=== PATIENT | female | born 1955 | race Caucasian/White ===

== ENCOUNTER 2016-09-15 17:07 | Emergency (ER) | payer OTHER ==
[~2016-09-15] VITALS: Ht 160 cm; Wt 75.3 kg
[~2016-09-15 17:07] MED LIST: FLNIN NAE; HYDR1CAP85 PO; MULTTAB PO; PARO10TA PO
[2016-09-15 17:10] VITALS: TEMP 36.7; Ht 160 cm; Wt 75.3 kg
[2016-09-15 17:25] VITALS: O2SAT 98
[2016-09-15] MEDS ORDERED: FLUT0.15 NAE (17:40)
[2016-09-15 18:19] LABS: BASO % 0.2 %; BASO ABS # 0.01 K/uL (0-0.2); COMPLETE YES; EOS % 0.2 %; HEMATOCRIT 40.2 % (37-47); IG% 0.2 %; LYMPH % 33.2 %; LYMPH ABS # 1.72 K/uL (1.2-3.4); MEAN CELL VOLUME 96.6 fL (80-100); MEAN CORPUSCULAR HEMOGLOBIN 32.7 pg (25-34); MEAN CORPUSCULAR HGB CONC 33.8 g/dl (32-36); MEAN PLATELET VOLUME 10.6 fL (7.4-10.4); MONO % 5.4 %; NEUT % 60.8 %; PLATELET COUNT 214 K/uL (130-400); RED BLOOD COUNT 4.16 M/uL (4.2-5.4); WHITE BLOOD COUNT 5.18 K/uL (4.8-10.8)
[2016-09-15 18:28] LABS: PROTHROMBIN TIME (PATIENT) 10.7 SECONDS (9.0-12.0)
--- NOTE | 2016-09-15 18:47 | DIAGNOSTIC IMAGING REPORT ---
CHEST 2 VIEWS ROUTINE CLINICAL HISTORY: Chest pain. Hemoptysis. COMPARISON STUDY: No previous studies for comparison. FINDINGS: Lung volumes are normal. No consolidation is identified and there is no evidence of pulmonary edema. Cardiac size is within normal limits. Mediastinal contours are normal. No pneumothorax or pleural effusion is identified. Minimal left basilar opacity is suggestive of atelectasis. IMPRESSION: No acute cardiopulmonary findings. Electronically signed by: Skyler Chanel M.D. 09/15/2016 6:45 PM Dictated Date/Time: 09/15/2016 6:44 PM
[2016-09-15 18:49] LABS: BUN/CREATININE RATIO 14.9 (10-20); CALCIUM 9.4 mg/dl (8.5-10.1); CREATININE 0.72 mg/dl (0.60-1.20); POTASSIUM 3.7 mmol/L (3.5-5.1)
[2016-09-15 18:54] LABS: CKMB/CK RATIO 1.9 (0-3.0)
[2016-09-15 19:54] VITALS: BP 124/80; PULSE 82; O2SAT 99
--- NOTE | 2016-09-16 00:13 | EMERGENCY ROOM VISIT NOTE ---
History First contact with patient: 17:17 Chief Complaint: COUGH Stated Complaint: SPITTING AND COUGHING UP BLOOD Nursing Triage Summary: coughing started last night, denies pain in chest, sob,green mucus with blood History of Present Illness The patient is a 60 year old female who presents to the Emergency Room with complaints of coughing up specks of blood since last evening. She reports that the amount is small. The patient denies any recent upper respiratory infection. She does report a history of chronic sinus issues, and has also noticed some blood when blowing her nose. She denies any sore throat, chest pain, shortness of breath, nausea or vomiting. The patient reports that she did mow her lawn this afternoon without any worsening symptoms. She reports a history of rheumatic fever as a child. She denies any other cardiopulmonary history. She does smoke. She does not take any blood thinners, including aspirin. Review of Systems HEENT: Denies dizziness, visual problems, hearing loss, tinnitus. Denies difficulty swallowing or oral lesions. PULMONARY: Denies shortness of breath, sputum production or hemoptysis. CARDIOVASCULAR: Denies chest pain, palpitations, dyspnea on exertion, orthopnea or peripheral edema. GASTROINTESTINAL: Denies diarrhea, constipation, nausea, vomiting, or abdominal pain. GENITOURINARY: Denies dysuria, frequency, urgency or nocturia. NEUROLOGIC: Denies history of epilepsy, CVA, TIA or chronic headaches. MUSCULOSKELETAL: Denies history of joint tenderness/swelling. SKIN: Denies rashes or lesions. PSYCHIATRIC: Denies history of depression or mental illness. ENDOCRINE: Denies history of diabetes or thyroid disorders. Past Medical/Surgical History Medical Problems: (1) Tobacco Use Disorder Surgical Problems: (1) History of ankle surgery (2) History of delivery (3) History of tonsillectomy and adenoidectomy Family History FH: cancer FH: diabetes mellitus FH: gallbladder disease FH: heart disease FH: hypertension Social History Smoking Status: Current Every Day Smoker Alcohol Use: none Drug Use: none Marital Status: in relationship Housing Status: lives with significant other Occupation Status: unemployed Current/Historical Medications Scheduled Multivitamins/Minerals (Mvi With Minerals), 1 TAB PO DAILY Scheduled PRN Fluticasone Propionate (Nasal) (Flonase Allergy Relief), 2 SPRAYS DARLIN DAILY PRN for ALLERGIC REACTION Hydroxyzine Pamoate (Vistaril), 25 MG PO QID PRN Allergies Coded Allergies: No Known Allergies (Unverified , 09/15/16) Physical Exam Vital Signs Date Time Temp Pulse Resp B/P Pulse Ox O2 Delivery O2 Flow Rate FiO2 09/15/16 19:54 82 16 124/80 99 09/15/16 17:29 88 09/15/16 17:25 98 Room Air 09/15/16 17:17 98 Room Air 09/15/16 17:10 36.7 114 18 136/86 96 Room Air Physical Exam CONSTITUTIONAL: Healthy and well nourished. Alert and oriented X 3 with positive affect. She does not appear in any acute distress. PSYCHIATRIC: The patient appears somewhat anxious. HEENT: Normocephalic, atraumatic. Pupils equal, round and reactive. Ears and nares are clear. No rhinorrhea or epistaxis. OROPHARYNX: Minimal posterior pharyngeal erythema without tonsillar hypertrophy or exudates. NECK: Full active range of motion without discomfort. No JVD or carotid bruits. No nuchal rigidity. RESPIRATORY: Clear to auscultation bilaterally with no wheezing, crackles, rhonchi or stridor. CARDIOVASCULAR: Regular rate and rhythm with no murmurs, rubs or gallops. GASTROINTESTINAL: Bowel sounds present in all quadrants. Soft and nontender to palpation. No hepatosplenomegaly. MUSCULOSKELETAL: Full range of motion of all joints without discomfort. INTEGUMENTARY: No rash or other significant dermatologic conditions noted. HEMATOLOGIC: No ecchymosis or petechiae appreciated. NEUROLOGIC: No focal neurologic deficits noted. Medical Decision & Procedures ER Provider Diagnostic Interpretation: My interpretation of an ECG shows a normal sinus rhythm of [address] elevation or other conduction abnormalities. My interpretation of a two-view chest x-ray does not show any consolidations, concerning lesions, pneumothorax or cardiomegaly. Radiologist report is as follows: CHEST 2 VIEWS ROUTINE CLINICAL HISTORY: Chest pain. Hemoptysis. COMPARISON STUDY: No previous studies for comparison. FINDINGS: Lung volumes are normal. No consolidation is identified and there is no evidence of pulmonary edema. Cardiac size is within normal limits. Mediastinal contours are normal. No pneumothorax or pleural effusion is identified. Minimal left basilar opacity is suggestive of atelectasis. IMPRESSION: No acute cardiopulmonary findings. Laboratory Results 09/15/16 18:05 Red Blood Count 4.16, Mean Corpuscular Volume 96.6, Mean Corpuscular Hemoglobin 32.7, Mean Corpuscular Hemoglobin Concent 33.8, Mean Platelet Volume 10.6, Neutrophils (%) (Auto) 60.8, Lymphocytes (%) (Auto) 33.2, Monocytes (%) (Auto) 5.4, Eosinophils (%) (Auto) 0.2, Basophils (%) (Auto) 0.2, Neutrophils # (Auto) 3.15, Lymphocytes # (Auto) 1.72, Monocytes # (Auto) 0.28, Eosinophils # (Auto) 0.01, Basophils # (Auto) 0.01 09/15/16 18:05 Test 09/15/16 18:05 09/15/16 18:14 White Blood Count 5.18 K/uL (4.8-10.8) Red Blood Count 4.16 M/uL (4.2-5.4) Hemoglobin 13.6 g/dL (12.0-16.0) Hematocrit 40.2 % (37-47) Mean Corpuscular Volume 96.6 fL (80-100) Mean Corpuscular Hemoglobin 32.7 pg (25-34) Mean Corpuscular Hemoglobin Concent 33.8 g/dl (32-36) Platelet Count 214 K/uL (130-400) Mean Platelet Volume 10.6 fL (7.4-10.4) Neutrophils (%) (Auto) 60.8 % Lymphocytes (%) (Auto) 33.2 % Monocytes (%) (Auto) 5.4 % Eosinophils (%) (Auto) 0.2 % Basophils (%) (Auto) 0.2 % Neutrophils # (Auto) 3.15 K/uL (1.4-6.5) Lymphocytes # (Auto) 1.72 K/uL (1.2-3.4) Monocytes # (Auto) 0.28 K/uL (0.11-0.59) Eosinophils # (Auto) 0.01 K/uL (0-0.5) Basophils # (Auto) 0.01 K/uL (0-0.2) RDW Standard Deviation 45.1 fL (36.4-46.3) RDW Coefficient of Variation 12.9 % (11.5-14.5) Immature Granulocyte % (Auto) 0.2 % Immature Granulocyte # (Auto) 0.01 K/uL (0.00-0.02) Prothrombin Time 10.7 SECONDS (9.0-12.0) Prothromb Time International Ratio 1.0 (0.9-1.1) Activated Partial Thromboplast Time 26.1 SECONDS (21.0-31.0) Partial Thromboplastin Ratio 1.0 Anion Gap 10.0 mmol/L (3-11) Est Creatinine Clear Calc Drug Dose 80.7 ml/min Estimated GFR () 105.5 Estimated GFR (Non- 91.0 BUN/Creatinine Ratio 14.9 (10-20) Calcium Level 9.4 mg/dl (8.5-10.1) Total Bilirubin 0.4 mg/dl (0.2-1) Direct Bilirubin 0.1 mg/dl (0-0.2) Aspartate Amino Transf (AST/SGOT) 11 U/L (15-37) Alanine Aminotransferase (ALT/SGPT) 18 U/L (12-78) Alkaline Phosphatase 76 U/L (45-117) Total Creatine Kinase 53 U/L (26-192) Creatine Kinase MB 1.0 ng/ml (0.5-3.6) Creatine Kinase MB Ratio 1.9 (0-3.0) Total Protein 7.0 gm/dl (6.4-8.2) Albumin 3.7 gm/dl (3.4-5.0) Lipase 72 U/L (73-393) Bedside D-Dimer 359 ng/mlFEU (0-450) Bedside Troponin I 0.000 ng/ml (0-0.045) The above labs were reviewed and were grossly normal, including a bedside d- dimer and troponin. The patient is not anemic. ED Course Patient history and physical exam were performed. Nurse's notes were reviewed. Vital signs were reviewed and normal. The patient is normotensive and afebrile. O2 saturation is 96% on room air. The patient does not appear in any acute distress. IV access was established, and labs were drawn. An ECG was performed and was normal. Two-view chest x-ray was also normal. Labs were reviewed and were also normal, including a bedside d-dimer and troponin. The case was also discussed with Dr. Urbina, ED attending physician, who agrees with workup and plan of care. Findings were also discussed with the patient. She was encouraged to follow-up with her PCP within the next 2-3 days for reevaluation. She was instructed to return to the emergency department for any worsening bleeding, chest pain, shortness of breath or other concerning symptoms. The patient reports that she has had a long history of sinus problems , but has never seen an ENT physician. I did encourage her to discuss a possible ENT referral when she is reevaluated by her PCP. The patient was happy with plan of care, and voiced understanding of all discharge instructions. Medical Decision The patient presents to the emergency department with complaint of flecks of blood in her sputum when coughing. It is noted that the patient denies any productive ongoing cough, upper respiratory infection, chest pain or shortness of breath. Her workup today is unremarkable. The patient thinks that some of blood might be from her sinuses. At this point, I do feel that the patient is stable for outpatient management, and was instructed to return for any progressively worsening symptoms or hemoptysis. Impression Primary Impression: Hemoptysis Departure Information Referrals Rod Dick M.D. (PCP) Patient Instructions My [facility]
[2016-10-23] MEDS ORDERED: CALC-51 PO (08:53)
[2016-10-23] MEDS ORDERED: CHOL100010 PO (08:53)
[2016-10-23] MEDS ORDERED: MULT-506 PO (08:53)
[2016-10-23] MEDS ORDERED: FEXO1TAB49 PO (08:53)
[2016-11-12] MEDS ORDERED: HYDR-5688 PO (10:02)
== END 2016-09-15 19:55 | disposition home or self-care (01) ==
LOC: C.EDB 17:08 → C.EDA 19:55
DX: R04.2 Hemoptysis (principal); F17.210 Nicotine dependence, cigarettes, uncomplicated; Z80.9 Family history of malignant neoplasm, unspecified; Z83.3 Family history of diabetes mellitus; Z82.49 Family history of ischemic heart disease and other diseases of the circulatory system

== ENCOUNTER → 2016-10-17 | Outpatient (CLI) | payer OTHER ==
[~2016-10-17] MED LIST changes: +CALC-51 PO; +CHOL100010 PO; +FEXO1TAB49 PO; -FLNIN NAE; +FLUT0.15 NAE; +HYDR-5688 PO; +MULT-506 PO; -PARO10TA PO
--- NOTE | 2016-10-17 13:32 | DIAGNOSTIC IMAGING REPORT ---
MRI LEFT KNEE NO CONTRAST CLINICAL HISTORY: Chronic left knee pain COMPARISON STUDY: Conventional radiographic study dated 01/01/2016 FINDINGS: Imaging was performed in the axial, sagittal, and coronal planes. There is a small supra patellar joint effusion. Quadriceps and patellar tendons appear intact. Anterior and posterior cruciate ligaments appear normal. There is a 12 mm subchondral cyst within the posterior aspect of the proximal tibia. The lateral meniscus appears normal. There is a horizontal tear within the posterior horn of the medial meniscus. No tears of the lateral meniscus are visualized. The medial and lateral collateral ligaments appear intact. IMPRESSION: Tear involving the posterior horn of the medial meniscus. Electronically signed by: Arnold Aragon M.D. 10/17/2016 1:30 PM Dictated Date/Time: 10/17/2016 1:27 PM
== END | disposition home or self-care (01) ==
LOC: C.MRIBC 12:19
PROVIDERS: ATTEND Orthopaedic Surgery
DX: S83.242A Other tear of medial meniscus, current injury, left knee, initial encounter (principal); X58.XXXA Exposure to other specified factors, initial encounter

== ENCOUNTER → 2016-11-12 | Day surgery (SDC) | payer OTHER ==
[2016-10-23 08:53] VITALS: Ht 160 cm; Wt 73.2 kg
[2016-10-24 09:42] LABS: BASO % 0.4 %; BASO ABS # 0.02 K/uL (0-0.2); COMPLETE YES; EOS % 5.1 %; HEMATOCRIT 40.8 % (37-47); LYMPH ABS # 1.65 K/uL (1.2-3.4); MEAN CELL VOLUME 97.6 fL (80-100); MEAN CORPUSCULAR HEMOGLOBIN 33.5 pg (25-34); MEAN CORPUSCULAR HGB CONC 34.3 g/dl (32-36); MEAN PLATELET VOLUME 11.1 fL (7.4-10.4); MONO % 4.5 %; PLATELET COUNT 190 K/uL (130-400); RED BLOOD COUNT 4.18 M/uL (4.2-5.4); WHITE BLOOD COUNT 4.71 K/uL (4.8-10.8)
[2016-10-24 10:03] LABS: POTASSIUM 4.1 mmol/L (3.5-5.1)
[~2016-11-12] VITALS: Ht 160 cm; Wt 73.2 kg
[~2016-11-12] MED LIST changes: +ATROPINE SULFATE 0.1 MG/ML 5ML SYR IV PRN; +BUPIVACAINE 0.5 % 5 MG/1 ML PF 10ML VIAL ONE; +CEFAZOLIN 1000MG/55 ML D5W IV SCH; +EpHEDrine SULFATE INJ 50 MG/ML AMP IV PRN; +EpINEphrine INJ 1MG/ML AMP 1 MG/ML AMP ONE; +FENTANYL CITRATE INJ 50 MCG/1 ML 2 ML VIAL IV PRN; +FENTANYL CITRATE INJ 50 MCG/1 ML 2 ML VIAL ONE; -HYDR1CAP85 PO; +KETOROLAC TROMETHAMINE 30 MG/ML VIAL ONE; +LACTATED RINGER'S 1000ML 1,000 ML IV SCH; +LIDOCAINE HCL 2% 2 ML VIAL (20MG/ML) ONE; +MIDAZOLAM HCL 1 MG/ML 2ML VIAL ONE; -MULTTAB PO; +ONDANSETRON INJ 2 MG/ML 2 ML VIAL IV PRN; +ONDANSETRON INJ 2 MG/ML 2 ML VIAL ONE; +OXYCODONE/ACETAMINOPHEN 5-325 TAB PO PRN; +PROPOFOL IV EMULSION 10 MG/ML 20 ML VIAL IV ONE; +ROPIVACAINE 0.5% 5 MG/ML 30 ML VIAL ONE; +SODIUM CHLORIDE 0.9% 1000ML 1,000 ML IV SCH
--- NOTE | 2016-11-12 08:14 | History & Physical Bridge - SC ---
H&P Re-Evaluation Bridge Note: I have examined the patient, reviewed the History & Physical and in the interval since the performance of the History & Physical I have noted the following changes of clinical significance: No changes noted
--- NOTE | 2016-11-12 09:52 | [facility] Post Operative Brief Note ---
Immediate Operative Summary Operative Date Nov 12, 2016. Pre-Operative Diagnosis Left knee medial meniscus tear Post-Operative Diagnosis Same as preop, DJD MEDIAL FEM CONDYLE Procedure(s) Performed Left Knee Arthroscopy, Partial Medial Meniscectomy Surgeon Dr. Palma General Internal Medicine Physician Surgeon(s) Judson Alexander PA-C Estimated Blood Loss 0 mL Findings ABOVE Specimens None Drains NONE Anesthesia LMA Complication(s) None Disposition Recovery Room / PACU
--- NOTE | 2016-11-12 10:03 | Discharge Instructions-SurgCtr ---
Discharge Instructions Date of Service Nov 12, 2016. Visit Reason for Visit: Acute Meniscal Tear Medial Left, Knee Pain Discharge Discharge Diagnosis / Problem: SAME ABOVE Discharge Goals Goal(s): Decrease discomfort, Improve function Activity Recommendations Activity Limitations: as noted below Lifting Limitations: gradually increase as tolerated Exercise/Sports Limitations: until after follow-up appointment Shower/Bathe: may shower/bathe in 3 days Anesthesia . Post Anesthesia Instructions: If you have had General Anesthesia or IV Sedation: * Do not drive today. * Resume driving when surgeon permits. * Do not make important decisions or sign legal documents today. * Call surgeon for: 1. Temperature elevations greater than 101 degrees F. 2. Uncontrollable pain. 3. Excessive bleeding. 4. Persistent nausea and vomiting. 5. Medication intolerance (nausea, vomiting or rash). * For nausea and vomiting use only clear liquids such as: tea, soda, bouillon until nausea subsides, then gradually increase diet as tolerated. * If you have any concerns or questions, call your surgeon's office. If physician is unavailable and it is an emergency, call 911 or go to the nearest emergency room. . Instructions / Follow-Up Instructions / Follow-Up MEDICATIONS: * Resume previous medications unless instructed otherwise by your surgeon. * Always take pain medication on a full stomach or with food to avoid upset stomach. * Do not drink alcohol or drive while taking narcotics. * Ibuprofen or Tylenol may be taken if narcotic not needed. SPECIAL CARE INSTRUCTIONS: __ None _X_ Keep extremity elevated and iced x 48 hours; apply ice 20-30 minutes 8-10 times/day. May remove at night. __ Crutches __ May discard when able __ Brace/Post-op shoe __ 24 hrs/day __ Remove at night _X_ Dressing __ Maintain until seen in office, may shower with plastic over site _X_ Remove dressings in 24-48 hours and then may shower _X_ Cover incisions with band-aids after showering __ Do not remove steri-strips Call physician if chills or temperature rises above 102 degrees or pain unrelieved by prescribed pain medications. Office [phone] Diet Recommendations Home Diet: resume previous diet Procedures Procedures Performed: Left Knee Arthroscopy, Partial Medial Meniscectomy Pending Studies Studies pending at discharge: no Medical Emergencies . Who to Call and When: Medical Emergencies: If at any time you feel your situation is an emergency, please call 911 immediately. . Non-Emergent Contact Non-Emergency issues call your: Primary Care Provider . . "Provider Documentation" section prepared by Judson Alexander. .
--- NOTE | 2016-11-12 10:18 | Anesthesia Progress Nt - [facility] ---
Anesthesia Post Op Note Date & Time Nov 12, 2016 at 10:18 Vital Signs Pain Intensity: 0 Vital Signs Past 12 Hours Date Time Temp Pulse Resp B/P (MAP) Pulse Ox O2 Delivery O2 Flow Rate FiO2 11/12/16 10:01 36.2 80 12 133/72 97 Diffusion Mask 6 11/12/16 08:07 36.7 71 18 120/79 (93) 96 Room Air Notes Mental Status: alert / awake / arousable, participated in evaluation Pt Amnestic to Procedure: Yes Nausea / Vomiting: adequately controlled Pain: adequately controlled Airway Patency, RR, SpO2: stable & adequate BP & HR: stable & adequate Hydration State: stable & adequate Anesthetic Complications: no major complications apparent
[2016-11-12 11:08] VITALS: TEMP 36.9
[2016-11-12 11:22] VITALS: BP 112/72; PULSE 77; O2SAT 96
--- NOTE | 2016-11-14 09:09 | OPERATIVE REPORT ---
DATE OF SURGERY: 11/12/16 PREOPERATIVE DIAGNOSIS: Left knee medial meniscus tear. POSTOPERATIVE DIAGNOSIS: Same. PROCEDURE: Left knee arthroscopy with partial medial mesiscectomy, with grade 2-3 degenerative changes of the medial femoral condyle about the size of a nickel and also the trochlear groove of the distal femur. SURGEON: Dr. Palma. AGRICULTURAL ENGINEERING TECHNICIANS: Judson Alexander PA-C. ANESTHESIOLOGIST: Dr. Astudillo. ANESTHESIA: LMA. DRAINS: None. COMPLICATIONS: None. CONDITION: The patient tolerated the procedure well and returned to the recovery room in apparent satisfactory condition. INDICATIONS FOR SURGERY: Anyi is a 60-year-old female who is having problems with her knee with an injury years back. She continues to have problems and found to have a meniscus tear and elected to go ahead and proceed with surgery. Procedure, expected outcomes, side effects, and risks were all explained in detail. DESCRIPTION OF PROCEDURE: Patient was taken to the OR, at which time she was placed supine on the operating table and put to sleep by the anesthesia department. The left knee was prepped and draped in the usual sterile fashion for surgery. Ligamentous rodriguez was stable. Went ahead and began arthroscopic examination in the anteromedial and anterolateral portals. We immediately found a frayed tear of the posterior horn of the medial meniscus. We came in with upbiting scissors and a full radius resector and trimmed it back to a stable rim. We found one area of the articular surface about the size of a dime to a nickel that was probably grade 2-3 changes. Light debridement was done here. Remaining knee was examined. The lateral compartment was fine. We did find trochlear groove degenerative changes of the articular surface grade 2-3. Light debridement was done here. The knee was then copiously irrigated and cannulas were removed. Portals were closed with 4-0 nylon sutures. 30 Ropivacaine, 10 mg of Toradol, and 1 cc of epinephrine was placed in the knee joint. Placed a sterile dressing of Xeroform, 4 x 4, ABD, Sof-Rol and Aris bandage and returned back to the recovery room in apparently satisfactory condition. SURGICAL FINDINGS: 1. Posterior horn medial meniscus tear. 2. Grade 2-3 changes of the medial femoral condyle about the size of a dime to a nickel. 3. Grade 2-3 changes of the trochlear groove of the distal femur.
== END | disposition home or self-care (01) ==
LOC: X.SURG 07:52
PROVIDERS: ATTEND Orthopaedic Surgery
DX: S83.242A Other tear of medial meniscus, current injury, left knee, initial encounter (principal); X58.XXXA Exposure to other specified factors, initial encounter

== ENCOUNTER 2023-12-24 11:06 | Inpatient (IN) ==
[2023-12-24 12:25] LABS: Basophils # (auto) 0.02 K/uL (0.00-0.20); Basophils % (auto) 0.3 %; Hematocrit (blood only) 39.2 % (37.0-47.0); Hemoglobin 13.6 g/dl (12.0-16.0); Immature Granulocytes # (auto) 0.02 K/uL (0.01-0.20); Immature Granulocytes % (auto) 0.3 %; Lymphocytes # (auto) 1.53 K/uL (1.20-3.40); Lymphocytes % (auto) 20.8 %; Mean Corpuscular Hemoglobin 32.5 pg (25.0-34.0); Mean Corpuscular Hgb Conc 34.7 g/dL (32.0-36.0); Mean Corpuscular Volume 93.8 fL (80.0-100.0); Monocytes # (auto) 0.37 K/uL (0.11-0.59); Neutrophils # (auto) 5.42 K/uL (1.40-6.50); Neutrophils % (auto) 73.6 %; Platelet Count 195 K/uL (130-400); RDW Standard Deviation 44.9 fL (36.4-46.3); Red Blood Count 4.18 M/uL (4.20-5.40); White Blood Count 7.36 K/ul (4.8-10.8)
[2023-12-24] MEDS: KETOROLAC TROMETHAMINE 15 MG/ML VIAL IV ONE (12:39)
[2023-12-24] MEDS: ONDANSETRON INJ 2 MG/ML 2 ML VIAL IV STA (12:39)
[2023-12-24 12:42] LABS: Appearance Urine Clear (Clear); Bacteria Urine Automated None Seen (None Seen); Bilirubin Urine Negative (Negative); Blood Urine Trace (Negative); Cast Urine Automated 0-2 /lpf (0-2); Color Urine Yellow; Glucose Urine UA Negative (Negative); Ketones Urine Negative (Negative); Leukocyte Esterase Urine 1+ (Negative); Nitrite Urine Negative (Negative); Protein Urine Negative (Negative); Specific Gravity Urine 1.013 (1.000-1.030); Urobilinogen Urine Negative (Negative); WBC Urine Automated 0-5 /hpf (0-5)
[2023-12-24 12:45] LABS: Albumin Level 4.4 gm/dl (3.4-5.0); BUN Creatinine Ratio 11.5 (10-20); Bilirubin Direct 0.1 mg/dl (0-0.2); Bilirubin,Total 0.5 mg/dl (0.2-1.0); Est GFR (African American) 113.8 ml/min; Est GFR (Non-African American) 98.2 ml/min; Potassium 3.8 mmol/L (3.5-5.1); Total Protein 7.5 gm/dl (6.0-8.3)
[2023-12-24] MEDS: OPTIRAY 320 100ml IV ONE (12:58)
--- NOTE | 2023-12-24 13:21 | CT Scan Report ---
CT SCAN OF THE ABDOMEN AND PELVIS WITH IV CONTRAST CLINICAL HISTORY: Left lower quadrant abdominal pain. COMPARISON STUDY: Pelvic ultrasound dated 12/03/2006. TECHNIQUE: Following the IV administration of 93 cc of Optiray 320, CT scan of the abdomen and pelvi s is performed from the lung bases to the proximal femora. Images are reviewed in the axial, sagittal , and coronal planes. IV contrast was administered without complication. A dose lowering technique wa s utilized adhering to the principles of ALARA. CT DOSE: 1033.43 mGy.cm FINDINGS: Lung bases: The heart is normal in size and without pericardial effusion. The coronary arteries are d ensely calcified. A tiny hiatal hernia is noted. The lung bases are clear noting bibasilar scarring/a telectasis. Liver: The contrast-enhanced liver is normal in size, contour, and attenuation. There is no intrahepa tic biliary ductal dilatation. The hepatic veins and portal veins are patent. Gallbladder: Unremarkable. Spleen: Normal in size and attenuation. Pancreas: Unremarkable. Adrenal glands: Unremarkable. Kidneys: The contrast enhanced kidneys are normal in size and without hydronephrosis. The kidneys enh ance symmetrically. Scattered 2-3 mm cortical hypodensities likely represent cysts but are too small for definitive characterization. Abdominal vasculature: The abdominal aorta is normal in course and caliber noting advanced atheroscle rotic calcification. Bowel: There is mild colonic fecal retention. No bowel obstruction is seen. The appendix is not visu alized. Peritoneum: There is no intraperitoneal free air or abdominal ascites. There is a fat-containing umbi lical hernia. Lymphadenopathy: None. Pelvic viscera: The bladder is normal as visualized. There is approximately 6 x 7 x 7 cm complex hype rdense lesion posterior to the uterus. There is a small volume of complex free fluid in the cul-de-sa c. The uterus is normal as visualized. Skeletal structures: The skeletal structures are osteopenic. There is mild to moderate lumbosacral sp ondylosis and scoliosis. No lytic or blastic lesions are seen. IMPRESSION: 1. There is an approximately 7 cm round complex/hyperdense adnexal lesion posterior to the uterus. Th is may be hemorrhagic and related to the left ovary. This lesion is pathologically indeterminant, wit h possible considerations including ovarian torsion, a hemorrhagic ovarian mass lesion, or much less likely a degenerating exophytic fibroid. A pelvic ultrasound is recommended for further evaluation. T his should include an endovaginal examination. 2. There is a small volume of mildly complex free fluid in the cul-de-sac which may represent blood p roducts. 3. Additional findings as above. ACT 112: Negative or not required by law. Electronically signed by: Rick Myers M.D. 12/24/2023 1:20 PM
--- NOTE | 2023-12-24 14:26 | Emergency Department Note ---
Impression & Plan Ovarian torsion ED Provider Note NAME: FRANCISCO MAR AGE: 68 SEX: F : 1955 ARRIVES VIA: Walk-In INFORMANT: Patient, ED PROVIDER(S): Shaq Jimenez MD CHIEF COMPLAINT: Left lower quadrant abdominal pain HPI: This is a 68-year-old female sent for left lower quad abdominal pain. Patient notes that this started last night. She is in constant abdominal pain associated with nausea or vomiting. She notes that she has no history of previous kidney stones. She does have slight burning when she urinates. She also reports nausea and vomiting over the course of the night. She notes pain has not improved and has been persistent. she describes pain in the left lower quadrant that goes from her lower groin into her flanks. No recent fevers, chills. ROS: See above HPI for pertinent positives & negatives. A total of 10 systems reviewed and were otherwise negative. PAST MEDICAL HISTORY: See Below PAST SURGICAL HISTORY: See Below FAMILY HISTORY: See Below SOCIAL HISTORY: See Below HOME MEDICATIONS: See Below ALLERGIES: See Below VITALS: See Below PHYSICAL EXAMINATION: General: resting comfortably in no acute distress Head: Normocephalic and atraumatic Eyes: Normal inspection, extraocular muscles intact Ear, nose, throat: Normal external exam Neck: Normal range of motion Respiratory: lungs clear to auscultation bilaterally Cardiovascular: Regular rate/rhythm, no murmur GI: Left lower quadrant tenderness Extremities: nontender, moves all extremities Neuro: The patient awake and alert, appropriately conversive, no focal deficits, symmetric faces Skin: Warm, dry, and intact MEDICAL DECISION MAKING: This is a 68-year-old female sent for left lower quadrant abdominal tenderness. Consider diverticulitis, pyelonephritis, renal colic, ovarian torsion, SBO. will initiate broad workup with blood work, CT abdomen/pelvis, urinalysis. Will give Toradol for pain control at this time. -Labs reviewed showing no leukocytosis or anemia. Electrolytes within normal limits. Normal creatinine, transaminitis is not seen. -Urinalysis reveals slight blood without signs of overt UTI -CT imaging is concerning for 7 cm left adnexal mass concerning for ovarian torsion versus hemorrhagic mass -Pelvic exam performed with nursing handy man, Alfonso, reveals excruciating left adnexal tenderness. Patient is very uncomfortable during this part of the exam -Ultrasound performed again showing mass that is concerning for ovarian torsion versus hemorrhagic mass -Stat call made to [employer]TENS[employer] COURSE COUNSELOR service. They are currently in a and will call me back immediately. -Discussed with EXTENSION COURSE COUNSELOR, who evaluated at bedside for ovarian torsion -Patient will go to the OR emergently as per Dr. Morrell Differential diagnosis: See above ER treatment provided: See below Independent History obtained from: Granddaughter Diagnostics interpreted by me: ECG: None Cardiac Monitoring: An order was placed for continuous cardiac monitoring. The monitor shows a rate of 68 with sinus rhythm. Laboratory studies: As stated above and show below. Imaging studies: See below. Critical Care Note: I have personally spent 45 minutes of critical care time in the direct management of this patient. This includes bedside care, interpretation of diagnostic studies, and testing, discussion with consultants, patient, and family members, and other required patient management activities. This 45 minutes is in excess of all separately billable procedures. Past Med/Surg History Problem List (Updated 12/25/23 @ 09:25 by Shaq Jimenez MD) Ovarian torsion (Acute) Hemoptysis (Acute) Medical History (Updated 12/25/23 @ 09:25 by Shaq Jimenez MD) Encounter for pre-operative examination Ovarian mass, left Tobacco use disorder Allergic rhinitis Surgical History (Updated 12/24/23 @ 17:02 by Marko Philippe MD) History of tonsillectomy and adenoidectomy History of delivery History of ankle surgery Social History Smoking Status: Current every day smoker Tobacco Type: Cigarettes Cigarettes Per Day: 1 pack/day.; Second Hand Exposure: No; Do You Dip or Chew Tobacco: No; Hx Alcohol Use: No Hx Substance Use: No Preferred Language: Swedish Chain Splitter Required: No Beliefs That Will Affect Care: None Current Living Situation: Spouse Other Information That Helps Us Care for You: No Feels Safe at Home: Yes Safety Concerns: Feels Safe At This Time Assistive Devices: Glasses Allergies Allergies Allergy/AdvReac Type Severity Reaction Status Date / Time No Known Allergies Allergy Mild Unverified 12/24/23 13:10 Home Meds Home Medications Medication Instructions Recorded Confirmed albuterol sulfate 90 mcg/actuation 2 puff inhalation Q4H PRN Wheezing 09/30/19 12/24/23 aerosol inhaler cholecalciferol (vitamin D3) 25 25 mcg PO QAM 09/30/19 12/24/23 mcg (1,000 unit) tablet (Vitamin D3) montelukast 10 mg tablet 10 mg PO DAILY Allergy Symptoms 09/30/19 12/24/23 fexofenadine 180 mg tablet 0 mg PO QAM 12/24/23 12/24/23 fluticasone furoate 100 1 inh inhalation DAILY 12/24/23 12/24/23 mcg/actuation blister powder for inhalation (Arnuity Ellipta) multivitamin 1 tab PO DAILY 12/24/23 12/24/23 rosuvastatin 10 mg tablet 10 mg PO QAM 12/24/23 12/24/23 Previous Rx's Medication Instructions Recorded ibuprofen 600 mg tablet 600 mg PO Q6H PRN fever or pain 12/24/23 #30 tabs Results & Data (ED) Vital Signs Vital Signs - 24 hr 12/24/23 11:13 12/24/23 14:53 12/24/23 16:59 Temperature 36.1 C L Temperature Source Temporal Artery Scan Pulse Rate 97 H Pulse Rate [Apical] 68 64 Respiratory Rate 18 18 18 Respiratory Effort / Characteristics Non-Labored Spontaneous Respiratory Depth Normal Respiratory Pattern Regular Blood Pressure 151/101 H Blood Pressure [Right Arm] 132/79 166/69 H Blood Pressure Mean 117 Blood Pressure Mean [Right Arm] 96 101 Pulse Oximetry 95 98 98 Oxygen Delivery Method Room Air Room Air Room Air Sepsis Recent Fever Within 48 Hours No Sepsis New/Unexplained Change in Mental Status N/A Sepsis Action Taken by Nursing No Action Required Laboratory Data 12/24/23 11:53 12/24/23 11:53 Lab Results 12/24/23 Range/Units 11:53 WBC 7.36 (4.8-10.8) K/ul RBC 4.18 L (4.20-5.40) M/uL Hgb 13.6 (12.0-16.0) g/dl Hct 39.2 (37.0-47.0) % MCV 93.8 (80.0-100.0) fL MCH 32.5 (25.0-34.0) pg MCHC 34.7 (32.0-36.0) g/dL RDW Std Deviation 44.9 (36.4-46.3) fL RDW Coeff of Cornelio 13.0 (11.5-14.5) % Plt Count 195 (130-400) K/uL MPV 11.0 (9.4-12.4) fL Immature Gran % (Auto) 0.3 % Neut % (Auto) 73.6 % Lymph % (Auto) 20.8 % [place] % (Auto) 5.0 % Eos % (Auto) 0.0 % Baso % (Auto) 0.3 % Neut # (Auto) 5.42 (1.40-6.50) K/uL Lymph # (Auto) 1.53 (1.20-3.40) K/uL [place] # (Auto) 0.37 (0.11-0.59) K/uL Eos # (Auto) 0.00 (0.00-0.50) K/uL Baso # (Auto) 0.02 (0.00-0.20) K/uL Immature Gran # (Auto) 0.02 (0.01-0.20) K/uL Sodium 137 (136-145) mmol/L Potassium 3.8 (3.5-5.1) mmol/L Chloride 105 (98-107) mmol/L Carbon Dioxide 26 (21-32) mmol/L Anion Gap 6 (3-11) BUN 6 (6-23) mg/dl Creatinine 0.52 L (0.6-1.2) mg/dl Est Cr Clr Drug Dosing 98.0 ml/min Est GFR ( Amer) 113.8 ml/min Est GFR (Non-Af Amer) 98.2 ml/min BUN/Creatinine Ratio 11.5 (10-20) Glucose 103 H (70-99(Fasting)) mg/dl Calcium 10.0 (8.6-10.3) mg/dl Total Bilirubin 0.5 (0.2-1.0) mg/dl Direct Bilirubin 0.1 (0-0.2) mg/dl AST 14 (13-39) U/L ALT 12 (7-52) U/L Alkaline Phosphatase 71 (34-104) U/L Total Protein 7.5 (6.0-8.3) gm/dl Albumin 4.4 (3.4-5.0) gm/dl Administered Medications Fexofenadine HCl (Fexofenadine Hcl 180 Mg Tab) 180 mg PO QAM [facility] Stop: 01/24/24 08:59 Last Admin: 12/25/23 07:57 Dose: 180 mg Documented By: KETTY Fluticasone Furoate (Fluticasone Furoate 100mcg 14 Puffs/Inhaler) 1 puffs INH DAILY BERTRAM Stop: 01/24/24 08:59 Last Admin: 12/25/23 07:59 Dose: 1 puffs Documented By: KETTY Lactated Ringer's (Lr) 1,000 mls @ 125 mls/hr IV .Q8H BERTRAM Stop: 12/25/23 20:32 Last Admin: 12/25/23 07:59 Dose: Not Given Documented By: Admin: 12/25/23 07:59 Dose: Not Given Documented By: KETTY Ibuprofen (Ibuprofen 600 Mg Tab) 600 mg PO Q6H PRN PRN Reason: Pain & Pre PT Stop: 01/23/24 20:39 Last Admin: 12/25/23 07:56 Dose: 600 mg Documented By: KETTY Montelukast Sodium (Montelukast Sodium 10 Mg Tablet) 10 mg PO DAILY [facility] Stop: 01/24/24 08:59 Last Admin: 12/25/23 07:57 Dose: 10 mg Documented By: KETTY Multivitamins (Multivitamin Tab) 1 tab PO DAILY BERTRAM Stop: 01/24/24 08:59 Last Admin: 12/25/23 07:57 Dose: 1 tab Documented By: KETTY Rosuvastatin Calcium (Rosuvastatin Calcium 10 Mg Tab) 10 mg PO QAM [facility] Stop: 01/24/24 08:59 Last Admin: 12/25/23 07:58 Dose: 10 mg Documented By: KETTY Discontinued Medications Bupivacaine HCl (Bupivacaine 0.5 % 5 Mg/1 Ml Mpf 30ml Vial) Confirm Administered Dose 30 ml .ROUTE .STK-MED ONE Stop: 12/24/23 16:53 Last Admin: 12/24/23 19:49 Dose: 30 ml Documented By: SAZ Hydromorphone HCl (Hydromorphone Inj 0.5 Mg/0.5 Ml Syr) 0.5 mg IV NOW STA Stop: 12/24/23 15:00 Last Admin: 12/24/23 15:02 Dose: 0.5 mg Documented By: SOL Ioversol (Optiray 320 100ml) 93 ml IV ONCE ONE Stop: 12/24/23 12:58 Last Admin: 12/24/23 12:58 Dose: 93 ml Documented By: TIO Ketorolac Tromethamine (Ketorolac Tromethamine 15 Mg/Ml Vial) 15 mg IV NOW ONE Stop: 12/24/23 12:36 Last Admin: 12/24/23 12:39 Dose: 15 mg Documented By: SOL Ondansetron HCl (Ondansetron Inj 2 Mg/Ml 2 Ml Vial) 4 mg IV NOW STA Stop: 12/24/23 12:36 Last Admin: 12/24/23 12:39 Dose: 4 mg Documented By: SOL Imaging Data Radiologist's Impression: Abdomen/Pelvis CT 12/24/23 11:29 CT SCAN OF THE ABDOMEN AND PELVIS WITH IV CONTRAST CLINICAL HISTORY: Left lower quadrant abdominal pain. COMPARISON STUDY: Pelvic ultrasound dated 12/03/2006. TECHNIQUE: Following the IV administration of 93 cc of Optiray 320, CT scan of the abdomen and pelvis is performed from the lung bases to the proximal femora. Images are reviewed in the axial, sagittal, and coronal planes. IV contrast was administered without complication. A dose lowering technique was utilized adhering to the principles of ALARA. CT DOSE: 1033.43 mGy.cm FINDINGS: Lung bases: The heart is normal in size and without pericardial effusion. The coronary arteries are densely calcified. A tiny hiatal hernia is noted. The lung bases are clear noting bibasilar scarring/atelectasis. Liver: The contrast-enhanced liver is normal in size, contour, and attenuation. There is no intrahepatic biliary ductal dilatation. The hepatic veins and portal veins are patent. Gallbladder: Unremarkable. Spleen: Normal in size and attenuation. Pancreas: Unremarkable. Adrenal glands: Unremarkable. Kidneys: The contrast enhanced kidneys are normal in size and without hydronephrosis. The kidneys enhance symmetrically. Scattered 2-3 mm cortical hypodensities likely represent cysts but are too small for definitive characterization. Abdominal vasculature: The abdominal aorta is normal in course and caliber noting advanced atherosclerotic calcification. Bowel: There is mild colonic fecal retention. No bowel obstruction is seen. The appendix is not visualized. Peritoneum: There is no intraperitoneal free air or abdominal ascites. There is a fat-containing umbilical hernia. Lymphadenopathy: None. Pelvic viscera: The bladder is normal as visualized. There is approximately 6 x 7 x 7 cm complex hyperdense lesion posterior to the uterus. There is a small volume of complex free fluid in the cul-de-sac. The uterus is normal as visualized. Skeletal structures: The skeletal structures are osteopenic. There is mild to moderate lumbosacral spondylosis and scoliosis. No lytic or blastic lesions are seen. IMPRESSION: 1. There is an approximately 7 cm round complex/hyperdense adnexal lesion posterior to the uterus. This may be hemorrhagic and related to the left ovary. This lesion is pathologically indeterminant, with possible considerations including ovarian torsion, a hemorrhagic ovarian mass lesion, or much less likely a degenerating exophytic fibroid. A pelvic ultrasound is recommended for further evaluation. This should include an endovaginal examination. 2. There is a small volume of mildly complex free fluid in the cul-de-sac which may represent blood products. 3. Additional findings as above. ACT 112: Negative or not required by law. Electronically signed by: Rick Myers M.D. 12/24/2023 1:20 PM Pelvis Ultrasound 12/24/23 13:37 US pelvic complete CLINICAL HISTORY: torsion, lesion to L ovary TECHNIQUE: Real-time sonographic images of the pelvic contents were obtained with transabdominal and transvaginal technique. Comparison: Comparison is made to CT abdomen pelvis 12/24/2023 FINDINGS: The uterus measures 5.3 x 2.7 x 2.8 cm. The endometrial cavity echo stripe measures 0.2 cm in thickness. The uterus is normal in appearance. Right ovary is not visualized. There is a nonvascular 6.8 x 5.6 x 6.2 cm focus in the left adnexa. There was no fluid in the cul-de-sac. IMPRESSION: The right ovary is not seen and no normal left ovary is seen. There is a large heterogeneous area in the left adnexa without internal flow, concerning for ovarian torsion although it may represent hemorrhagic ovarian mass lesion. ACT 112: Negative or not required by law. Electronically signed by: Esteban Baxter M.D. 12/24/2023 2:50 PM Discharge Plan Visit Data Chief Complaint: Flank Pain Stated Complaint: LEFT SIDE PAIN, VOMITING ED Provider: Shaq Jimenez Discharge Problem: Ovarian torsion Patient Disposition: Admitted As Inpatient Discharge Instructions Interventions: ED Discharge Assessment Last Done: 12/24/23 17:00
--- NOTE | 2023-12-24 14:53 | Ultrasound Report ---
US pelvic complete CLINICAL HISTORY: torsion, lesion to L ovary TECHNIQUE: Real-time sonographic images of the pelvic contents were obtained with transabdominal and transvaginal technique. Comparison: Comparison is made to CT abdomen pelvis 12/24/2023 FINDINGS: The uterus measures 5.3 x 2.7 x 2.8 cm. The endometrial cavity echo stripe measures 0.2 cm in thickne ss. The uterus is normal in appearance. Right ovary is not visualized. There is a nonvascular 6.8 x 5.6 x 6.2 cm focus in the left adnexa. There was no fluid in the cul-de-sac. IMPRESSION: The right ovary is not seen and no normal left ovary is seen. There is a large heterogeneous area in the left adnexa without internal flow, concerning for ovarian torsion although it may represent hemor rhagic ovarian mass lesion. ACT 112: Negative or not required by law. Electronically signed by: Esteban Baxter M.D. 12/24/2023 2:50 PM
[2023-12-24] MEDS: HYDROmorphone INJ 0.5 MG/0.5 ML SYR IV STA (15:02)
--- NOTE | 2023-12-24 16:57 | History & Physical Report ---
Date of Service December 24, 2023 Assessment & Plan (1) Ovarian mass, left: Plan: Operative laparoscopy, possible exploratory laparotomy, possible removal of ovary History of Present Illness Chief Complaint: abdominal pain Primary Care Provider: Aguilar Hinkle DO 68 F P2002 post-menopausal with onset of left LLQ pain starting last PM and lasting to admission to ER this AM. She vomited four times last night and was unable to keep anything down with pain that was not relieved so she came to the ER. 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 Allergies Allergy/AdvReac Type Severity Reaction Status Date / Time No Known Allergies Allergy Mild Unverified 12/24/23 13:10 Home Medications Medication Instructions Recorded Confirmed Type albuterol sulfate 90 mcg/actuation 2 puff inhalation Q4H PRN Wheezing 09/30/19 12/24/23 History aerosol inhaler cholecalciferol (vitamin D3) 25 25 mcg PO QAM 09/30/19 12/24/23 History mcg (1,000 unit) tablet (Vitamin D3) montelukast 10 mg tablet 10 mg PO DAILY Allergy Symptoms 09/30/19 12/24/23 History fexofenadine 180 mg tablet 0 mg PO QAM 12/24/23 12/24/23 History fluticasone furoate 100 1 inh inhalation DAILY 12/24/23 12/24/23 History mcg/actuation blister powder for inhalation (Arnuity Ellipta) multivitamin 1 tab PO DAILY 12/24/23 12/24/23 History rosuvastatin 10 mg tablet 10 mg PO QAM 12/24/23 12/24/23 History Patient History Medical History Tobacco use disorder Allergic rhinitis Surgical History History of ankle surgery Social History Smoking Status: Current some day smoker Tobacco Type: Cigarettes Preferred Language: Czech Feels Safe at Home: Yes 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 no mass. no rebound or guarding. pain with deep palpation in abdomen. Musculoskeletal: Extremities: extremities normal to inspection Skin: no rashes, warm and dry Neurologic: patellar DTR's 2+ bilat, sensation intact Psychiatric: A+Ox3, euthymic affect Results & Data Vital Signs (Past 12 Hours) Vital Signs Temp Pulse Pulse Resp BP BP Pulse Ox 12/24/23 14:53 68 18 132/79 98 12/24/23 11:13 36.1 C L 97 H 18 151/101 H 95 O2 Del Method 12/24/23 14:53 Room Air 12/24/23 11:13 Room Air Laboratory Results 12/24/23 12/24/23 11:53 Unknown WBC 7.36 RBC 4.18 L Hgb 13.6 Hct 39.2 MCV 93.8 MCH 32.5 MCHC 34.7 RDW Std Deviation 44.9 RDW Coeff of Cornelio 13.0 Plt Count 195 MPV 11.0 Immature Gran % (Auto) 0.3 Neut % (Auto) 73.6 Lymph % (Auto) 20.8 [place] % (Auto) 5.0 Eos % (Auto) 0.0 Baso % (Auto) 0.3 Neut # (Auto) 5.42 Lymph # (Auto) 1.53 [place] # (Auto) 0.37 Eos # (Auto) 0.00 Baso # (Auto) 0.02 Immature Gran # (Auto) 0.02 Sodium 137 Potassium 3.8 Chloride 105 Carbon Dioxide 26 Anion Gap 6 BUN 6 Creatinine 0.52 L Est Cr Clr Drug Dosing 98.0 Est GFR ( Amer) 113.8 Est GFR (Non-Af Amer) 98.2 BUN/Creatinine Ratio 11.5 Glucose 103 H Calcium 10.0 Total Bilirubin 0.5 Direct Bilirubin 0.1 AST 14 ALT 12 Alkaline Phosphatase 71 Total Protein 7.5 Albumin 4.4 Urine Color Yellow Urine Appearance Clear Urine pH 7.0 Ur Specific [place] 1.013 Urine Protein Negative Urine Glucose (UA) Negative Urine Ketones Negative Urine Blood Trace H Urine Nitrite Negative Urine Bilirubin Negative Urine Urobilinogen Negative Ur Leukocyte Esterase 1+ H Urine WBC (Auto) 0-5 Urine RBC (Auto) 6-10 H U Hyaline Cast (Auto) 0-2 U Epithel Cells (Auto) 3-5 H Urine Bacteria (Auto) None Seen Diagnostic Findings CT scan reveal Left ovarian enlargement with 7x7x6 cm mass with possible torsion.
[2023-12-24] MEDS ORDERED: ATROPINE SULFATE 0.1 MG/ML 10ML SYR IV PRN (17:00)
[2023-12-24] MEDS ORDERED: HYDROmorphone INJ 1 MG/ML SYRINGE IV PRN (17:00)
[2023-12-24] MEDS ORDERED: ePHEDrine sulfate 50 MG/ML AMP IV PRN (17:00)
[2023-12-24] MEDS ORDERED: ONDANSETRON INJ 2 MG/ML 2 ML VIAL IV PRN (17:00)
[2023-12-24] MEDS ORDERED: fentaNYL citrate PF 100 MCG/2 ML VIAL IV PRN (17:00)
[2023-12-24] MEDS ORDERED: PROMETHAZINE 6.25 MG/50.25 ML BAG IV PRN (17:04)
--- NOTE | 2023-12-24 17:04 | Anesthesiology Consultation ---
Date of Service December 24, 2023 Assessment & Plan (1) Encounter for pre-operative examination: Chart Review Chart Review: Acceptable Risk for Surgery and Patient NOT seen in Pre Admission Testing Consults Requested none History Surgery Operation Date: 12/24/23 07:00 Proposed Procedures p Operative Laparoscopy, Possible Open Laparotomy for Ovarian Torsion - Tomas Morrell MD Height/Weight Height: 5 ft 2 in Weight: 74.8 kg Allergies Allergy/AdvReac Type Severity Reaction Status Date / Time No Known Allergies Allergy Mild Unverified 12/24/23 13:10 Medications Home Medications Medication Instructions Recorded Confirmed Last Taken albuterol sulfate 90 mcg/actuation 2 puff inhalation Q4H PRN Wheezing 09/30/19 12/24/23 Unknown aerosol inhaler cholecalciferol (vitamin D3) 25 25 mcg PO QAM 09/30/19 12/24/23 05/04/22 mcg (1,000 unit) tablet (Vitamin D3) montelukast 10 mg tablet 10 mg PO DAILY Allergy Symptoms 09/30/19 12/24/23 05/04/22 fexofenadine 180 mg tablet 0 mg PO QAM 12/24/23 12/24/23 Unknown fluticasone furoate 100 1 inh inhalation DAILY 12/24/23 12/24/23 Unknown mcg/actuation blister powder for inhalation (Arnuity Ellipta) multivitamin 1 tab PO DAILY 12/24/23 12/24/23 Unknown rosuvastatin 10 mg tablet 10 mg PO QAM 12/24/23 12/24/23 Unknown Past Medical History Medical History (Updated 12/24/23 @ 17:03 by Marko Philippe MD) Encounter for pre-operative examination Ovarian mass, left Tobacco use disorder Allergic rhinitis Past Surgical History Surgical History (Updated 12/24/23 @ 17:02 by Marko Philippe MD) History of tonsillectomy and adenoidectomy History of delivery History of ankle surgery Social History Smoking Status: Current some day smoker Physical Exam Vital Signs Last Vital Signs Temp 36.1 C L 12/24/23 11:13 Pulse 64 12/24/23 16:59 Resp 18 12/24/23 16:59 BP 166/69 H 12/24/23 16:59 Pulse Ox 98 12/24/23 16:59 O2 Del Method Room Air 12/24/23 16:59 Testing Laboratory Results 12/24/23 11:53 12/24/23 11:53 Urine Color Yellow 12/24/23 Unknown Urine Appearance Clear (Clear) 12/24/23 Unknown Urine pH 7.0 (4.5-7.5) 12/24/23 Unknown Ur Specific [place] 1.013 (1.000-1.030) 12/24/23 Unknown Urine Protein Negative (Negative) 12/24/23 Unknown Urine Glucose (UA) Negative (Negative) 12/24/23 Unknown Urine Ketones Negative (Negative) 12/24/23 Unknown Urine Nitrite Negative (Negative) 12/24/23 Unknown Ur Leukocyte Esterase 1+ (Negative) H 12/24/23 Unknown Urine WBC (Auto) 0-5 /hpf (0-5) 12/24/23 Unknown Urine RBC (Auto) 6-10 /hpf (0-2) H 12/24/23 Unknown U Hyaline Cast (Auto) 0-2 /lpf (0-2) 12/24/23 Unknown U Epithel Cells (Auto) 3-5 /hpf (0-2) H 12/24/23 Unknown Urine Bacteria (Auto) None Seen (None Seen) 12/24/23 Unknown Electrocardiogram 05/05/22 DICTATED BY: Rod Winston MD Test Reason : Blood Pressure : / mmHG Vent. Rate : 065 BPM Atrial Rate : 065 BPM P-R Int : 184 ms QRS Dur : 096 ms QT Int : 396 ms P-R-T Axes : 074 054 062 degrees QTc Int : 411 ms Normal sinus rhythm Anterior infarct , age undetermined Abnormal ECG When compared with ECG of 11-JUN-2021 11:16, No significant change was found Confirmed by Rod Winston ([id number]) on 05/06/2022 6:10:[address] abdomen 12/24/23: IMPRESSION: 1. There is an approximately 7 cm round complex/hyperdense adnexal lesion posterior to the uterus. This may be hemorrhagic and related to the left ovary. This lesion is pathologically indeterminant, with possible considerations including ovarian torsion, a hemorrhagic ovarian mass lesion, or much less likely a degenerating exophytic fibroid. A pelvic ultrasound is recommended for further evaluation. This should include an endovaginal examination. 2. There is a small volume of mildly complex free fluid in the cul-de-sac which may represent blood products.
--- OUTSIDE RECORDS SUMMARY | 2023-12-24 17:05 | External Medical Summary | Summary of Care ---
Author Name Unknown Organization [facility] Address [address] [facility] [place] [address] Phone [phone] Care Team Providers Care Turn Down Worker Name Role Phone Unavailable Primary Care Provider Unavailabl e Reason for Visit * Reason Comments eRx-Medication Refill Encounter Details Date Type Department Care Team (Late st Contact Info) Description 09/04/2023 Refill Family Practice [facility] [address] [place] [address] Char Luque CRNP [address] [place] [address] Dyslipidemia Allergies No known active allergiesdocumented as of this encounter (statuses as of 09/04/2023) Medications Medication Sig Dispensed Refills Start Date End Date Status Vitamin D, Cholecalciferol, 1000 UNITS CAPS Take by mouth. 0 Active Multiple Vitamins-Minerals (MULTIVITAMIN ADULT) TABS Take by mouth. 0 Active fexofenadine (MINDI) 180 MG TabletIndications:Acu te recurrent sinusitis, unspecified location,Non-seasonal allergic rhinitis due to pollen Take 1 Tab by mouth daily as needed for Allergies. 30 Tab 11 09/18/2016 Active fluticasone (FLONASE) 50 MCG/ACT nasal sprayIndications:Acut e recurrent sinusitis, unspecified location,Non-seasonal allergic rhinitis due to pollen Administer 2 Sprays into each nostril daily. 1 Inhaler 5 09/18/2016 Active hydrOXYzine HCl 25 MG tabletIndications:Urt icaria Take 1 Tab by mouth 4 times a day as needed for Itching. 40 Tab 2 09/01/2019 Active Varenicline Tartrate 0.5 MG X 11 & 1 MG X 42 OralIndications:Tobac co use disorder Take as directed on box. 53 Tablet 0 11/26/2021 Active Additional Information Patient not taking.Reported on 12/31/2022 Nicotine 21 MG/24HR Transdermal Patch 24 Hour (Nicoderm CQ)Indications:Tobacc o use disorder Place 1 Patch over 24 hours topically on the skin in the morning. On upper body/upper arm, change once a day for 6 weeks.. 42 Patch 0 12/31/2022 Active Additional Information Patient not taking.Reported on 08/20/2023 Diclofenac Sodium 1 % External Gel (Voltaren)Indications :Primary osteoarthritis of left knee APPLY 4 GRAMS FOUR TIMES DAILY TO KNEE NEEDED FOR PAIN 100 g 2 01/13/2023 Active Azithromycin 250 MG Oral Tablet (Zithromax Z-Jeancarlos)Indications:Acu te non-recurrent frontal sinusitis Take two tablets by mouth on first day, then 1 tablet daily until gone 6 Tablet 0 01/24/2023 Active Additional Information Patient not taking.Reported on 08/20/2023 Albuterol Sulfate HFA 108 (90 Base) MCG/ACT Inhalation Aerosol SolutionIndications:C OPD, severity to be determined (HCC) Use 2 puffs every 4 hours as needed for wheezing or shortness of breath 18 g 2 03/04/2023 Active Montelukast Sodium 10 MG Oral Tablet (Singulair)Indication s:Seasonal allergic rhinitis due to pollen TAKE 1 TABLET BY MOUTH EVERY DAY 90 Tablet 1 07/19/2023 Active Rosuvastatin Calcium 10 MG Oral Tablet (Crestor)Indications: Dyslipidemia Take 1 Tablet by mouth in the morning. 90 Tablet 3 08/20/2023 Active Varenicline Tartrate 1 MG Oral TabletIndications:Tob acco use disorder As directed on box, 0.5 mg once daily on day 1-3, 0.5 mg twice daily on day 4-7, and 1 mg twice daily starting day 8 for 11 weeks. 90 Tablet 0 08/20/2023 Active Arnuity Ellipta 100 MCG/ACT Inhalation Aerosol Powder Breath Activated (fluticasone Furoate)Indications:C OPD, severity to be determined (HCC) Inhale 1 Puff by mouth daily. 30 Each 3 08/26/2023 Active documented as of this encounter (statuses as of 09/04/2023) Active Problems Problem Noted Date Diagnosed Date COPD, severity to be determined 11/26/2021 Dyslipidemia 11/26/2021 Primary osteoarthritis of left knee 11/26/2021 Dysfunction of left eustachian tube 08/28/2018 Seasonal allergic rhinitis due to pollen 019 TMJ (temporomandibular joint syndrome) 9 Benign neoplasm of colon 09/17/2007 Overview: adenomatous and hyperplastic; repeat colonoscopy in 3 yrs Tobacco use disorder documented as of this encounter (statuses as of 09/04/2023) Resolved Problems Problem Noted Date Diagnosed Date Resolved Date Moderate episode of recurren t major depressive disorder 02/20/2018 05/25/2019 Vitamin D deficiency 06/01/2009 018 ADVANCE DIRECTIVE INFORMATION 03/01/2005 05/30/2016 Overview: No, Advance Directive brochure given to patient. Menopause 03/01/2005 01/29/2018 Urticaria 05/19/2003 01/29/2018 Urticaria 05/19/2003 02/20/2018 Overview: aggravated by cold and stress HELICOBACTER PYLORI (H. PYLORI) INFECTION 08/01/2000 12/19/2000 Abdominal pain, epigastric 08/01/2000 1 CHR BLOOD LOSS ANEMIA 07/04/20002016 Adjustment disorder with depressed mood 01/29/2018 documented as of this encounter (statuses as of 09/04/2023) Immunizations Name Administration Dates Next Due H1N1 2009 Influenza, IM 06/05/2009 Pneumococcal Conjugate Vacci ne, 20-valent ([id number]) 06/20/2022 Pneumococcal Polysaccharide PPV23 (Pneumovax) 05/28/2021,03/27/2009 Seasonal Influenza Virus Vac cine, Unspecified Formulation 04/17/2021,04/17/2020,05/24/2019,01/29,02/18/2013,03/02/2009,03/02/2006 Seasonal Influenza, PF, 6 M & above, IM , (FluLaval or Fluzone) 04/17/2020,05/24/2019,01/29/2018 Seasonal Influenza, Quadriva lent Hd (Fluzone Hd) 02/14/2023 Seasonal Influenza, Quadrivalent, ID 03/14/2022 Seasonal Influenza, Quadriva lent, No Preserve, IM 04/17/2021 Seasonal Influenza, Split, I IV3, With Preserve, Inj 02/18/2013,03/02/2009,03/02/2006 TDAP (age 10 and older)(Boostrix) 11/23/2020 TDAP (age 11 and older)(Adacel) 09/24/2010 Zoster Vaccine Recombinant (Shingrix) 08/02/2019 ,05/24/2019 documented as of this encounter Social History Tobacco Use Types Packs/Day Years Used Date Smoking Tobacco: Every Day Cigarettes 0.5 40 Smokeless Tobacco: Never Alcohol Use Standard Drinks/Week Comments No 0 (1 standard drink = 0.6 oz pur e alcohol) PHQ-2 Answer Date Recorded PHQ-2 Score 0 12/13/2019 Hunger Vital Sign Answer Date Recorded Within the past 12 months, y ou worried that your food would run out before you got the money to buy more. Never true 11/24/19 21 Within the past 12 months, t he food you bought just didn't last and you didn't have money to get more. Never true 11/23/2020 Sex and Gender Information Value Date Recorded Sex Assigned at Female 08/28/2018 10:33 AM EDT Gender Identity Female 08/28/2018 10:33 AM EDT Sexual Orientation Straight 08/28/2018 10 :33 AM EDT Job Start Date Occupation Industry Not on file Not on file Not on file documented as of this encounter Miscellaneous Notes * Telephone Encounter - Marbella Harrington, [facility] - 09/04/2023 4:27 PM EDTRefused Prescriptions: Disp Refills Rosuvastatin Calcium 10 MG Oral Tablet (Cr*90 Tab*1 Sig: TAKE 1TABLET BY MOUTH EVERY DAYRefused By: MARBELLA HARRINGTONReason for Refusal: Too soonReason for Refusal Comment: refills sent 08/20/23 90 x 3rf --------- documented in this encounter Plan of Treatment Upcoming Encounters Date Type Department Care Team (Late st Contact Info) Description 10/27/2023 7:00 AM EDT Imaging Radiology [address] [place] [id number] 02/19/2024 7:20 AM EDT Office Visit Family Practice [facility] [address] [place] [phone] Char Luque CRNP [address] [place] [address] Scheduled Procedures Name Priority Associated Diagnoses Date/Ti me COLONOSCOPY FLEXIBLE PROXIMA L DIAGNOSTIC Recall History of colonic polyps Health Maintenance Due Date Last Done Comments DISCUSS TOBACCO CESSATION (REFER TO SMARTSET #3291) 1955 Alpha-1 Antitrypsin 12/15/1973 Depression Screening 12/12/2020 12/13/2019 COVID-19 Vaccine (2022- season) 2023 O2 ASSESSMENT COMPLETED IN PAST YEAR FOR COPD 01/01/2024 12/31/2022 Mammogram 06/02/2024 06/02/2023, 05/19, 05/29/2022, Additional history exists COLONOSCOPY-EVERY 5 YRS AGES 18-100 12/19/2024 12/20/2019, 12/20/2019, 09/17/2007, Additional history exists Diabetes Screening 08/19/2026 08/20/2023, 0 10/22/2022, 05/28/2021, Additional history exists DXA Scan 11/28/2027 11/27/2020, 11/16, 04/02/2010, Additional history exists Lipid Panel 08/19/2028 08/20/2023, 06/0 10/2022, 05/28/2021, Additional history exists DTaP,Tdap,and Td Vaccines (3 - Td or Tdap) 11/23/2030 11/23/2020, 09/24/2010, 10/15/2000 Zoster Vaccines Completed 08/02/2019, 05/24/2019 COLONOSCOPY-EVERY 3 YRS AGES 18-100 Discontinued 12/20/2019, 12/20/2019, 09/17/2007, Additional history exists Pap Smear Discontinued 12/24/2019, 11/2019, 04/08/2016, Additional history exists Pneumococcal Vaccine: 65+ Years Completed 06/20/2022, 05/28/2021, 03/27/2009 Lung Cancer Screening Completed 10/22/2022 , 10/19/2021, 09/22/2020 Influenza Vaccine (FLU shot) Completed 02/14/2023, 03/14/2022, 02/24/2022, Additional history exists GARDASIL-HPV IMMUNIZATION SERIES Aged Out No longer eligible based on patient's age to complete this topic Hepatitis B Aged Out No longer eligi ble based on patient's age to complete this topic MENINGOCOCCAL (MENACTRA/MENVEO) Aged Out No longer eligible based on patient's age to complete this topic documented as of this encounter Medical Devices Not on filedocumented as of this encounter Visit Diagnoses Diagnosis Dyslipidemia Other and unspecified hyperlipidemia documented in this encounter
--- OUTSIDE RECORDS SUMMARY | 2023-12-24 17:05 | External Medical Summary | Summary of Care ---
Author Name Unknown Organization [facility] Address [address] [facility] [place] [address] Phone [phone] Care Team Providers Care Visual Merchandiser Name Role Phone Unavailable Primary Care Provider Unavailabl e Reason for Visit * Reason Comments eRx-Medication Refill Encounter Details Date Type Department Care Team (Late st Contact Info) Description 12/14/2023 Refill Family Practice [facility] [address] [place] [phone] Ricky Luque CRNP [address] [place] [address] COPD, severity to be determined (HCC) Allergies No known active allergiesdocumented as of this encounter (statuses as of 12/15/2023) Medications Medication Sig Dispensed Refills Start Date End Date Status Vitamin D, Cholecalciferol, 1000 UNITS CAPS Take by mouth. Activ e Multiple Vitamins-Minerals (MULTIVITAMIN ADULT) TABS Take by mouth. Active fexofenadine (MINDI) 180 MG TabletIndications:A cute recurrent sinusitis, unspecified location,Non-season al allergic rhinitis due to pollen Take 1 Tab by mouth daily as needed for Allergies. 30 Tab 11 7 Active fluticasone (FLONASE) 50 MCG/ACT nasal sprayIndications:Ac [place] recurrent sinusitis, unspecified location,Non-season al allergic rhinitis due to pollen Administer 2 Sprays into each nostril daily. 1 Inhaler 5 7 Active hydrOXYzine HCl 25 MG tabletIndications:U rticaria Take 1 Tab by mouth 4 times a day as needed for Itching. 40 Tab 2 0 Active Varenicline Tartrate 0.5 MG X 11 & 1 MG X 42 OralIndications:Tob acco use disorder Take as directed on box. 53 Tablet 2 Active Additional Information Patient not taking.Reported on 12/31/2022 Nicotine 21 MG/24HR Transdermal Patch 24 Hour (Nicoderm CQ)Indications:Toba director of accounts receivable use disorder Place 1 Patch over 24 hours topically on the skin in the morning. On upper body/upper arm, change once a day for 6 weeks.. 42 Patch 3 Active Additional Information Patient not taking.Reported on 08/20/2023 Diclofenac Sodium 1 % External Gel (Voltaren)Indicatio ns:Primary osteoarthritis of left knee APPLY 4 GRAMS FOUR TIMES DAILY TO KNEE NEEDED FOR PAIN 100 g 2 3 Active Azithromycin 250 MG Oral Tablet (Zithromax Z-Jeancarlos)Indications:A cute non-recurrent frontal sinusitis Take two tablets by mouth on first day, then 1 tablet daily until gone 6 Tablet 3 Active Additional Information Patient not taking.Reported on 08/20/2023 Albuterol Sulfate HFA 108 (90 Base) MCG/ACT Inhalation Aerosol SolutionIndications :COPD, severity to be determined (HCC) Use 2 puffs every 4 hours as needed for wheezing or shortness of breath 18 g 2 3 Active Montelukast Sodium 10 MG Oral Tablet (Singulair)Indicati ons:Seasonal allergic rhinitis due to pollen TAKE 1 TABLET BY MOUTH EVERY DAY 90 Tablet 1 4 Active Rosuvastatin Calcium 10 MG Oral Tablet (Crestor)Indication s:Dyslipidemia Take 1 Tablet by mouth in the morning. 90 Tablet 3 4 Active Varenicline Tartrate 1 MG Oral TabletIndications:T obacco use disorder As directed on box, 0.5 mg once daily on day 1-3, 0.5 mg twice daily on day 4-7, and 1 mg twice daily starting day 8 for 11 weeks. 90 Tablet 4 Active Arnuity Ellipta 100 MCG/ACT Inhalation Aerosol Powder Breath Activated (fluticasone Furoate)Indications :COPD, severity to be determined (HCC) INHALE 1 PUFF BY MOUTH EVERY DAY 30 Each 3 4 Active Arnuity Ellipta 100 MCG/ACT Inhalation Aerosol Powder Breath Activated (fluticasone Furoate)Indications :COPD, severity to be determined (HCC) Inhale 1 Puff by mouth daily. 30 Each 3 4 12/15/19 24 Discontinued documented as of this encounter (statuses as of 12/15/2023) Active Problems Problem Noted Date Diagnosed Date [...] as of this encounter (statuses as of 12/15/2023) Resolved Problems Problem Noted Date Diagnosed Date [...] as of this encounter (statuses as of 12/15/2023) Immunizations Name Administration Dates Next Due H1N1 2009 Influenza, IM 06/05/2009 Pneumococcal Conjugate Vacci ne, 20-valent ([id number]) 06/20/2022 Pneumococcal Polysaccharide PPV23 (Pneumovax) 05/28/2021,03/27/2009 Seasonal Influenza Virus Vac cine, Unspecified Formulation 04/17/2021,04/17/2020,05/24/2019,01/29,02/18/2013,03/02/2009,03/02/2006 Seasonal Influenza, PF, 6 M & above, IM , (FluLaval or Fluzone) 04/17/2020,05/24/2019,01/29/2018 Seasonal Influenza, Quadriva lent Hd (Fluzone Hd) 02/14/2023 Seasonal Influenza, Quadrivalent, ID 03/14/2022 Seasonal Influenza, Quadriva lent, No Preserve, IM 04/17/2021 Seasonal Influenza, Split, I IV3, With Preserve, Inj 02/18/2013,03/02/2009,03/02/2006 TDAP (age 10 and older)(Boostrix) 11/23/2020 TDAP, Age 7 and older, IM (Adacel) 09/24/2010 Zoster Vaccine Recombinant (Shingrix) 08/02/2019 ,05/24/2019 [...] money to get more. Never true 11/23/2020 Utilities Answer Date Recorded Do you have trouble paying y our heating, water, or electric bill? (Adult - for ages 18 years and over) Not on file 11/04/2023 Is your family able to pay t he heat, water, or electric bill? (Household - for ages 0-17 years) Not on file 11/04/2023 Does your family have access to good internet? (Household - for ages 0-17 years) Not on file 11/04/2023 Social Connections Answer Date Recorded How often do you feel lonely or isolated from those around you? (Adult - for ages 18 years and over) Not on file 11/04/2023 Sex and Gender Information Value Date Recorded Sex Assigned at Female 08/28/2018 10:33 AM EDT Gender Identity Female 08/28/2018 10:33 AM EDT Sexual Orientation Straight 08/28/2018 10 :33 AM EDT Job Start Date Occupation Industry Not on file Not on file Not on file documented as of this encounter Miscellaneous Notes * Telephone Encounter - Ricky Luque CRNP - 12/15/2023 1:05 PM EDTSigned Prescriptions: Disp Refills Arnuity Ellipta 100 MCG/ACT Inhalation Aer*30 Each3 Sig: INHALE 1 PUFF BY MOUTH EVERY DAY Authorizing Provider: RICKY LUQUE * Telephone Encounter - Maribel Love [facility] - 12/15/2023 12:53 PM EDT Pending Prescriptions: Disp Refills Arnuity Ellipta 100 MCG/ACT Inhalation Aer*30 Each3 Sig: INHALE 1 PUFF BY MOUTH EVERY DAY * Telephone Encounter - Maribel Love RP - 12/15/2023 12:53 PM EDT Patient has no PCP under whom to authorize refills. Please approve if appropriate. Thank you, Maribel Love, PharmD Clinical Pharmacist [facility] 12/15/23 12:53 PM [phone] documented in this encounter Plan of Treatment Upcoming Encounters Date Type Department Care Team (Late st Contact Info) Description 02/19/2024 7:20 AM EDT Office Visit Family Practice [facility] [address] [place] [address] Ricky Luque CRNP [address] [place] [address] Scheduled Procedures Name Priority Associated Diagnoses Date/Ti me COLONOSCOPY FLEXIBLE PROXIMA L DIAGNOSTIC Recall History of colonic polyps Health Maintenance Due Date Last Done Comments DISCUSS TOBACCO CESSATION (REFER TO SMARTSET #5365) 1955 Alpha-1 Antitrypsin 12/15/1973 Cologuard 12/15/2000 Fecal Occult Blood Test 12/15/2000 01/25/1998 Sigmoidoscopy 12/15/2000 Depression Screening 12/12/2020 12/13/2019 COVID-19 Vaccine ( season) 2023 *COPD SEVERITY VERIFIED BY PFT 11/30/2023 *CXR OR CT FOR COPD EVER 11/30/2023 O2 ASSESSMENT COMPLETED IN PAST YEAR FOR COPD 01/01/2024 12/31/2022 Influenza Vaccine (FLU shot) (#1) 2024 02/14/2023, 03/14/2022, 02/24/2022, Additional history exists Mammogram 06/02/2024 06/02/2023, 05/19, 05/29/2022, Additional history exists Colonoscopy 12/19/2024 12/20/2019, 0807/2019, 09/17/2007, Additional history exists Colorectal Cancer Screening 12/19/2024 Diabetes Screening 08/19/2026 08/20/2023, 0 10/22/2022, 05/28/2021, Additional history exists DXA Scan 11/28/2027 11/27/2020, 11/16, 04/02/2010, Additional history exists Lipid Panel 08/19/2028 08/20/2023, 06/0 10/2022, 05/28/2021, Additional history exists DTaP,Tdap,and Td Vaccines (3 - Td or Tdap) 11/23/2030 11/23/2020, 09/24/2010, 10/15/2000 Zoster Vaccines Completed 08/02/2019, 05/24/2019 RETIRED - COLONOSCOPY-EVERY 5 YRS AGES 18-100 Discontinued 12/20/2019, 12/20/2019, 09/17/2007, Additional history exists Pap Smear Discontinued 12/24/2019, 11/2019, 04/08/2016, Additional history exists Pneumococcal Vaccine: 65+ Years Completed 06/20/2022, 05/28/2021, 03/27/2009 Lung Cancer Screening Completed 10/27/2023 , 10/22/2022, 10/19/2021, Additional history exists HPV (Gardasil) Vaccine Aged Out No lo nger eligible based on patient's age to complete this topic Hepatitis B Vaccine Aged Out No longe r eligible based on patient's age to complete this topic MENINGOCOCCAL (MENACTRA/MENVEO) Aged Out No longer eligible based on patient's age to complete this topic documented as of this encounter Medical Devices Not on filedocumented as of this encounter Visit Diagnoses Diagnosis COPD, severity to be determined (HCC) Chronic airway obstruction, not elsewhere classified documented in this encounter
--- OUTSIDE RECORDS SUMMARY | 2023-12-24 17:06 | External Medical Summary | Summary of Care ---
Author Name Unknown Organization [facility] Address [address] [facility] [place] [address] Phone [phone] Care Team Providers Care Interventional Sale Consultant Name Role Phone Unavailable Primary Care Provider Unavailabl e Reason for Visit * Reason Comments eRx-Medication Refill Encounter Details Date Type Department Care Team (Late st Contact Info) Description 07/19/2023 Refill Family Practice [facility] [address] [facility] [place] [address] Aguilar Hinkle, DO [address] [place] [address] Seasonal allergic rhinitis due to pollen Allergies No known active allergiesdocumented as of this encounter (statuses as of 07/19/2023) Medications Medication Sig Dispensed Refills Start Date End Date Status Vitamin D, Cholecalciferol, 1000 UNITS CAPS Take by mouth. 0 Activ e Multiple Vitamins-Minerals (MULTIVITAMIN ADULT) TABS Take by mouth. 0 Active fexofenadine (MINDI) 180 MG TabletIndications:A cute recurrent sinusitis, unspecified location,Non-season al allergic rhinitis due to pollen Take 1 Tab by mouth daily as needed for Allergies. 30 Tab 11 7 Active fluticasone (FLONASE) 50 MCG/ACT nasal sprayIndications:[place] recurrent sinusitis, unspecified location,Non-season al allergic rhinitis [...] as directed on box. 53 Tablet 0 2 Active Additional Information Patient not taking.Reported on 12/31/2022 Rosuvastatin Calcium 10 MG Oral Tablet (Crestor)Indication s:Dyslipidemia TAKE 1 TABLET BY MOUTH EVERY DAY 90 Tablet 2 3 Active Nicotine 21 MG/24HR Transdermal Patch 24 Hour (Nicoderm CQ)Indications:Toba manager strategy & account use disorder Place 1 Patch over 24 hours topically on the skin in the morning. On upper body/upper arm, change once a day for 6 weeks.. 42 Patch 0 3 Active Diclofenac Sodium 1 % External Gel (Voltaren)Indicatio ns:Primary osteoarthritis of left knee APPLY 4 GRAMS FOUR TIMES DAILY TO KNEE NEEDED FOR PAIN 100 g 2 3 Active Azithromycin 250 MG Oral Tablet (Zithromax Z-Jeancarlos)Indications:A cute non-recurrent frontal sinusitis Take two tablets by mouth on first day, then 1 tablet daily until gone 6 Tablet 0 3 Active Albuterol Sulfate HFA 108 (90 Base) MCG/ACT Inhalation Aerosol SolutionIndications :COPD, severity to be determined (HCC) Use 2 puffs every 4 hours as needed for wheezing or shortness of breath 18 g 2 3 Active Advair Diskus 250-50 MCG/ACT Inhalation Aerosol Powder Breath Activated (Fluticasone-Salmet mike)Indications:CO PD, severity to be determined (HCC) INHALE 1 PUFF BY MOUTH TWO TIMES DAILY 180 Each 1 3 Active Montelukast Sodium 10 MG Oral Tablet (Singulair)Indicati ons:Seasonal allergic rhinitis due to pollen TAKE 1 TABLET BY MOUTH EVERY DAY 90 Tablet 1 4 Active Montelukast Sodium 10 MG Oral Tablet (Singulair)Indicati ons:Seasonal allergic rhinitis due to pollen TAKE 1 TABLET BY MOUTH EVERY DAY 90 Tablet 3 3 07/19/19 24 Discontinued documented as of this encounter (statuses as of 07/19/2023) Active Problems Problem Noted Date Diagnosed Date [...] as of this encounter (statuses as of 07/19/2023) Resolved Problems Problem Noted Date Diagnosed Date [...] as of this encounter (statuses as of 07/19/2023) Immunizations Name Administration Dates Next Due H1N1 2009 Influenza, IM 06/05/2009 Pneumococcal Conjugate Vacci ne, 20-valent ([id number]) 06/20/2022 Pneumococcal Polysaccharide PPV23 (Pneumovax) 05/28/2021,03/27/2009 Seasonal [...] encounter Miscellaneous Notes * Telephone Encounter - Denise Vásquez, [facility] - 07/19/2023 9:32 PM ESTSigned Prescriptions: Disp Refills Montelukast Sodium 10 MG Oral Tablet (Sing*90 Tab*1 Sig: TAKE 1TABLET BY MOUTH EVERY DAYAuthorizing Provider: Moose HINKLE User: DENISE VÁSQUEZ--- documented in this encounter Plan of Treatment Scheduled Procedures Name Priority Associated Diagnoses Date/Ti me COLONOSCOPY FLEXIBLE PROXIMA L DIAGNOSTIC Recall History of colonic polyps Health Maintenance Due Date Last Done Comments DISCUSS TOBACCO CESSATION (REFER TO SMARTSET #0244) 1955 Alpha-1 Antitrypsin 12/15/1973 Depression Screening 12/12/2020 12/13/2019 COVID-19 Vaccine ( season) 2023 O2 ASSESSMENT COMPLETED IN PAST YEAR FOR COPD 01/01/2024 12/31/2022 Mammogram 06/02/2024 06/02/2023, 05/19, 05/29/2022, Additional history exists COLONOSCOPY-EVERY 5 YRS AGES 18-100 12/19/2024 12/20/2019, 12/20/2019, 09/17/2007, Additional history exists Diabetes Screening 10/22/2025 10/22/2022, 0 05/28/2021, 05/26/2020, Additional history exists Lipid Panel 10/23/2027 10/22/2022, 05/19, 05/26/2020, Additional history exists DXA Scan 11/28/2027 11/27/2020, 11/16, 04/02/2010, Additional history exists DTaP,Tdap,and Td Vaccines (3 - Td or Tdap) 11/23/2030 11/23/2020, 09/24/2010, 10/15/2000 Zoster Vaccines Completed 08/02/2019, 05/24/2019 COLONOSCOPY-EVERY 3 YRS AGES 18-100 Discontinued 12/20/2019, 12/20/2019, 09/17/2007, Additional history exists Pap Smear Discontinued 12/24/2019, 11/2019, 04/08/2016, Additional history exists Pneumococcal Vaccine: 65+ Years Completed 06/20/2022, 05/28/2021, 03/27/2009 LUNG CANCER SCREENING - USE SMARTSET 51264 Completed 10/22/2022, 10/19/2021, 09/22/2020 Influenza Vaccine (FLU shot) Completed [...] as of this encounter Visit Diagnoses Diagnosis Seasonal allergic rhinitis due to pollen documented in this encounter
--- OUTSIDE RECORDS SUMMARY | 2023-12-24 17:06 | External Medical Summary | Summary of Care ---
Author Name Unknown Organization [facility] Address [address] [facility] [place] [address] Phone [phone] Care Team Providers Care Line Up Worker Name Role Phone Unavailable Primary Care Provider Unavailabl e Reason for Visit * Reason Comments eRx-Medication Refill Encounter Details Date Type Department Care Team (Late st Contact Info) Description 08/06/2023 Refill Family Practice [facility] [address] [place] [address] Aguilar Hinkle, DO [address] [place] [address] Dyslipidemia Allergies No known active allergiesdocumented as of this encounter (statuses as of 08/07/2023) Medications Medication Sig Dispensed Refills Start Date [...] Active fluticasone (FLONASE) 50 MCG/ACT nasal sprayIndications:Ac [place] recurrent sinusitis, unspecified location,Non-season al allergic rhinitis [...] MG/24HR Transdermal Patch 24 Hour (Nicoderm CQ)Indications:Toba accounting advisory services manager use disorder Place 1 Patch over 24 [...] TAKE 1 TABLET BY MOUTH EVERY DAY 30 Tablet 0 4 Active Rosuvastatin Calcium 10 MG Oral Tablet (Crestor)Indication s:Dyslipidemia TAKE 1 TABLET BY MOUTH EVERY DAY 90 Tablet 2 3 08/07/19 24 Discontinued documented as of this encounter (statuses as of 08/07/2023) Active Problems Problem Noted Date Diagnosed Date [...] as of this encounter (statuses as of 08/07/2023) Resolved Problems Problem Noted Date Diagnosed Date [...] as of this encounter (statuses as of 08/07/2023) Immunizations Name Administration Dates Next Due H1N1 2009 Influenza, IM 06/05/2009 Pneumococcal Conjugate Vacci ne, 20-valent ([id number]) 06/20/2022 Pneumococcal Polysaccharide PPV23 (Pneumovax) 05/28/2021,03/27/2009 Seasonal Influenza Virus Vac cine, Unspecified Formulation 04/17/2021,04/17/2020,05/24/2019,01/17,02/18/2013,03/02/2009,03/02/20 06 Seasonal Influenza, PF, 6 M & above, IM , (FluLaval or Fluzone) 04/17/2020,05/24/2019,01/29/2018 Seasonal Influenza, Quadriva lent Hd (Fluzone Hd) 02/14/2023 Seasonal Influenza, Quadrivalent, ID 03/14/2022 Seasonal Influenza, Quadriva lent, No Preserve, IM 04/17/2021 Seasonal Influenza, Split, I IV3, With Preserve, Inj 02/18/2013,03/02/2009,03/02/2006 TD - Tetanus/Diptheria (ADULT) 10/15/2000 0 10/15/2010 TDAP (age 10 and older)(Boostrix) 11/23/2020 TDAP [...] encounter Miscellaneous Notes * Telephone Encounter - Iona Watts OSA - 08/07/2023 9:18 AM EDT My g sent * Telephone Encounter - Mariaelena Valderrama CRNP - 08/07/2023 6:49 AM EDT Signed Prescriptions: Disp Refills Rosuvastatin Calcium 10 MG Oral Tablet (Cr*30 Tab*0 Sig: TAKE 1 TABLET BY MOUTH EVERY DAY Authorizing Provider: MARIAELENA VALDERRAMA * Telephone Encounter - April Mayes [facility] - 08/06/2023 10:39 PM EDTPending Prescriptions: Disp Refills Rosuvastatin Calcium 10 MG Oral Tablet (Cr*90 Tab*1 Sig: TAKE 1 TABLET BY MOUTH EVERY DAY * Telephone Encounter - April Mayes [facility] - 08/06/2023 10:39 PM EDT Patient has no PCP under whom to authorize refills. Please approve if appropriate. Pending Prescriptions: Disp Refills Rosuvastatin Calcium 10 MG Oral Tablet (Cr*90 Tab*1 Sig: TAKE 1 TABLET BY MOUTH EVERY DAY 12/31/2022 (in office), Visit date not found (telemedicine) Visit date not found If no future appointments scheduled, and last appointment is greater than a year ago, please schedule patient for a follow-up appointment Last date the medication was ordered: 11/12/22 Pharmacy: [id number] [id number] [facility] [place] Is this request for a controlled substance?No Urine Drug Screen:No results found for this or any previous visit. Patient Phone Numbers Labs: Lab Results Component Value Date/Time CREAT 0.7 10/22/2022 04:24 PM CREAT 0.8 05/26/2020 09:31 AM POTASSIUM 4.1 10/22/2022 04:24 PM POTASSIUM 4.6 05/26/2020 09:31 AM TSH 0.73 04/17/2010 02:08 PM LDLCALC 72 10/22/2022 04:24 PM LDLCALC 111 05/26/2020 09:31 AM LDLDIRECT NOT APPLICABLE 05/26/2020 09:31 AM ALT 18 10/22/2022 04:24 PM ALT 14 05/26/2020 09:31 AM documented in this encounter Plan of Treatment Scheduled Procedures Name Priority Associated Diagnoses Date/Ti me COLONOSCOPY FLEXIBLE PROXIMA L DIAGNOSTIC Recall History of colonic polyps Health Maintenance Due Date Last Done Comments DISCUSS TOBACCO CESSATION (REFER TO SMARTSET #6344) 1955 Alpha-1 Antitrypsin 12/15/1973 Depression Screening 12/12/2020 [...] 03/27/2009 LUNG CANCER SCREENING - USE SMARTSET 34504 Completed 10/22/2022, 10/19/2021, 09/22/2020 Influenza Vaccine (FLU [...]
--- OUTSIDE RECORDS SUMMARY | 2023-12-24 17:06 | External Medical Summary ---
Author Name Unknown Address Unknown Organization K01:[facility] [facility] [place] [address] [place] [address] Laboratory Report Ordering Provider Test Date Status SHERI LI 08/20/2023 08:10:40 Final Observation Date Value Abnormality Reference (Units ) Status Hyphen 8ODE SPECIMEN-LAV 08/20/2023 08:10:40 Freezing of extracted DNA, whole blood and/or serum. Final Performing Location LABORATORY C - [address] [place] [address]
--- OUTSIDE RECORDS SUMMARY | 2023-12-24 17:06 | External Medical Summary | Summary of Care ---
Author Name Unknown Organization [facility] Address [address] [facility] [place] [address] Phone [phone] Care Team Providers Care Supervisor Ordnance Truck Installation Name Role Phone Unavailable Primary Care Provider Unavailabl e Reason for Visit * Reason Onset Date Comments Pre Cert/Prior Auth 08/25/2023 Encounter Details Date Type Department Care Team (Late st Contact Info) Description 08/25/2023 Telephone Family Practice [facility] [address] [place] [address] Char Luque CRNP [address] [place] [address] Pre Cert/Prior Auth Allergies No known active allergiesdocumented as of this encounter (statuses as of 08/27/2023) Medications Medication Sig Dispensed Refills Start Date [...] Active fluticasone (FLONASE) 50 MCG/ACT nasal sprayIndications:Ac [place] recurrent sinusitis, unspecified location,Non-season al allergic rhinitis [...] MG/24HR Transdermal Patch 24 Hour (Nicoderm CQ)Indications: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 On upper body/upper arm, change once a day for 6 weeks.. 42 Patch 0 3 Active Additional Information Patient not taking.Reported [...] until gone 6 Tablet 0 3 Active Additional Information Patient not taking.Reported [...] 8 for 11 weeks. 90 Tablet 0 4 Active Arnuity Ellipta 100 MCG/ACT Inhalation Aerosol Powder Breath Activated (fluticasone Furoate)Indications :COPD, severity to be determined (HCC) Inhale 1 Puff by mouth daily. 30 Each 3 4 Active Fluticasone Furoate-Vilanterol 200-25 MCG/ACT Inhalation Aerosol Powder Breath Activated (BREO ellipta)Indications :COPD, severity to be determined (HCC) Inhale 1 Puff by mouth in the morning. 60 Blister Dosing Unit 2 4 08/26/19 24 Discontinued documented as of this encounter (statuses as of 08/27/2023) Active Problems Problem Noted Date Diagnosed Date [...] as of this encounter (statuses as of 08/27/2023) Resolved Problems Problem Noted Date Diagnosed Date [...] as of this encounter (statuses as of 08/27/2023) Immunizations Name Administration Dates Next Due H1N1 2009 Influenza, IM 06/05/2009 Pneumococcal Conjugate Vacci ne, 20-valent ([id number]) 06/20/2022 Pneumococcal Polysaccharide PPV23 (Pneumovax) 05/28/2021,03/27/2009 Seasonal [...] encounter Miscellaneous Notes * Telephone Encounter - Char Luque CRNP - 08/26/2023 8:23 PM EDT Alternative sent * Telephone Encounter - John Pro RN - 08/25/2023 8:42 AM EDT Received fax from [facility]'s pharmacy stating that Fluticasone Furoate-Vilanterol 200-25 MCG/ACT Inhalation Aerosol Powder requires prior-authorization. Shepherd: [id number] Alternatives listed that do not require prior-authorization are: Advair HFA Arnuity Ellipta Fax placed in Char's mailbox for review. documented in this encounter Plan of Treatment Upcoming Encounters Date Type Department Care Team (Late st Contact Info) Description 10/27/2023 7:00 AM EDT Imaging Radiology [facility] 1st [facility] [address] [facility] [place] [address] 02/19/2024 7:20 AM EDT Office Visit Family Practice [facility] [address] [facility] [place] [address] Char Luque CRNP [address] [facility] [place] [address] Scheduled Procedures Name Priority Associated Diagnoses Date/Ti [...] 03/27/2009 LUNG CANCER SCREENING - USE SMARTSET 04543 Completed 10/22/2022, 10/19/2021, 09/22/2020 Influenza Vaccine (FLU [...] Diagnoses Diagnosis COPD, severity to be determined (HCC)- Primary Chronic airway obstruction, not elsewhere classified documented in this encounter
--- OUTSIDE RECORDS SUMMARY | 2023-12-24 17:06 | External Medical Summary ---
Author Name Unknown Address Unknown Organization K01:LABORATORY [facility] [place] - [address] [place] [address] Laboratory Report Ordering Provider Test Date Status SHERI LI 08/20/2023 08:10:40 Final Observation Date Value Abnormality Reference (Units ) Status MYCODE SPECIMEN-SST 08/20/2023 08:10:40 Freezing of extracted DNA, whole blood and/or serum. Final Performing Location LABORATORY C - [address] [place] [address]
--- OUTSIDE RECORDS SUMMARY | 2023-12-24 17:06 | External Medical Summary | Summary of Care ---
Author Name Unknown Organization [facility] Address [address] [facility] [place] [address] Phone [phone] Care Team Providers Care Oyster Grower Name Role Phone Unavailable Primary Care Provider Unavailabl e Reason for Visit * Reason Comments eRx-Medication Refill Encounter Details Date Type Department Care Team (Late st Contact Info) Description 08/06/2023 Refill Family Practice [facility] [address] [place] [address] Aguilar Hinkle, DO [address] [place] [address] Dyslipidemia Allergies No known [...] Active fluticasone (FLONASE) 50 MCG/ACT nasal sprayIndications:Ac [place] recurrent sinusitis, unspecified location,Non-season al allergic rhinitis [...] MG/24HR Transdermal Patch 24 Hour (Nicoderm CQ)Indications:Toba account services manager use disorder Place 1 Patch [...] IM 06/05/2009 Pneumococcal Conjugate Vacci ne, 20-valent ([id number]) 06/20/2022 Pneumococcal Polysaccharide PPV23 (Pneumovax) 05/28/2021,03/27/2009 Seasonal [...] encounter Miscellaneous Notes * Telephone Encounter - Mariaelena Valderrama CRNP - 08/07/2023 6:49 AM EDT Signed Prescriptions: Disp Refills Rosuvastatin Calcium 10 MG Oral Tablet (Cr*30 Tab*0 Sig: TAKE 1 TABLET BY MOUTH EVERY DAY Authorizing Provider: MARIAELENA VALDERRAMA * Telephone Encounter - April Mayes [facility] - 08/06/2023 10:39 PM EDTPending Prescriptions: Disp Refills Rosuvastatin Calcium 10 MG Oral Tablet (Cr*90 Tab*1 Sig: TAKE 1 TABLET BY MOUTH EVERY DAY * Telephone Encounter - April Mayes [facility] - 08/06/2023 10:39 PM EDT Patient has [...] the medication was ordered: 11/12/22 Pharmacy: [facility] [id number] [place] Is this request for a controlled substance?No [...] Comments DISCUSS TOBACCO CESSATION (REFER TO SMARTSET #3848) 1955 Alpha-1 Antitrypsin 12/15/1973 Depression Screening 12/12/2020 [...] 03/27/2009 LUNG CANCER SCREENING - USE SMARTSET 70258 Completed 10/22/2022, 10/19/2021, 09/22/2020 Influenza Vaccine (FLU [...]
--- OUTSIDE RECORDS SUMMARY | 2023-12-24 17:06 | External Medical Summary ---
Author Name Unknown Address Unknown Organization K01:[place] [facility] [place] [address] [place] [address] Laboratory Report Ordering Provider Test Date Status SHERI LI 08/20/2023 08:10:40 Final Observation Date Value Abnormality Reference (Units ) Status MYCODE SPECIMEN-SST 08/20/2023 08:10:40 Freezing of extracted DNA, whole blood and/or serum. Final Performing Location LABORATORY C - [address] [place] [address]
--- OUTSIDE RECORDS SUMMARY | 2023-12-24 17:06 | External Medical Summary ---
Author Name Unknown Address Unknown Organization K01[place] [facility] [place] [address] [facility] [place] [address] Laboratory Report Ordering Provider Test Date Status OPHELIA GARCÍA 08/20/2023 08:10:40 Final Observation Date Value Abnormality Reference (Units ) Status Triglyceride 08/20/2023 08:10:40 79 <=174 ( mg/dL) Final Triglyceride Reference Range s (mg/dL):
<150 Acceptable
150-174 Borderline high
175-499 High
>=500 Very high Cholesterol 08/20/2023 08:10:40 147 <200 (mg /dL) Final Total Cholesterol Reference Ranges (mg/dL):
<200 Desirable
200-239 Borderline high
>=240 High HDL 08/20/2023 08:10:40 58 >49 (mg/dL ) Final HDL Cholesterol Reference Ra nges (mg/dL):
>=60 High (Desirable)
<50 Low (Undesirable) For Females
<40 Low (Undesirable) For Males NON-HDL CHOLESTEROL 08/20/2023 08:10:40 89 <=159 (mg/dL) Final Non-HDL Cholesterol Referenc e Range (mg/dL):
<100 Target level for high risk ASCVD patient
<130 Optimal for general population
130-159 Near optimal for general population
160-189 Borderline High
190-219 High
>=220 Very High LDL, (calculated) 08/20/2023 08:10:40 73 <= 129 (mg/dL) Final LDL Cholesterol Reference Ra nges (mg/dL):
<70 Target level for high risk ASCVD patient
<100 Optimal for general population
100-129 Near optimal for general population
130-159 Borderline high
160-189 High
>=190 Very high Performing Location [place] [facility] [place] [address] [facility] [phone]
--- OUTSIDE RECORDS SUMMARY | 2023-12-24 17:06 | External Medical Summary ---
Author Name Unknown Address Unknown Organization K0G:LABORATORY [facility] [place] [facility] - [address] [place] [address] Laboratory Report Ordering Provider Test Date Status OPHELIA GARCÍA 08/20/2023 08:10:40 Final Observation Date Value Abnormality Reference (Units ) Status BUN 08/20/2023 08:10:40 15 6-20 (mg/dL) Final Creatinine 08/20/2023 08:10:40 0.7 0.5-1.0 (mg/dL) Final Glomerular filtration rate/1.73 sq M.predicted [Volume Rate/Area] in Serum, Plasma or Blood by Creatinine-based formula (CKD-EPI) 08/20/2023 08:10:40 90 >=60 (mL/min) Final eGFR is calculated based on the CKD-EPI 2020 equation Sodium 08/20/2023 08:10:40 142 135-146 (m mol/L) Final Potassium 08/20/2023 08:10:40 4.1 3.5-5.1 (m mol/L) Final Cl 08/20/2023 08:10:40 106 98-107 (mm ol/L) Final CO2 08/20/2023 08:10:40 25 22-32 (mmo l/L) Final Anion gap 08/20/2023 08:10:40 11 7-15 (mmol /L) Final Glucose 08/20/2023 08:10:40 103 70-120 (mg /dL) Final Albumin 08/20/2023 08:10:40 4.3 3.8-5.0 (g /dL) Final AST (Aspartate aminotransferase) 08/20/2023 08:10:40 18 10-35 (U/L) Fin al Alk Phos 08/20/2023 08:10:40 74 35-130 (U/ L) Final Bilirubin, Total 08/20/2023 08:10:40 0.4 <=1 .2 (mg/dL) Final Calcium 08/20/2023 08:10:40 10.3 Above high normal 8. 4-10.2 (mg/dL) Final Protein 08/20/2023 08:10:40 6.8 6.0-8.3 (g /dL) Final ALT (Alanine aminotransferase) 08/20/2023 08:10:40 15 10-35 (U/L) Dino schwartz Performing Location LABORATORY [employer] [facility] - [address] [facility] [address]
--- OUTSIDE RECORDS SUMMARY | 2023-12-24 17:06 | External Medical Summary | Summary of Care ---
Author Name Unknown Organization [facility] Address [address] [facility] [place] [address] Phone [phone] Care Team Providers Care Video Games Storywriter Name Role Phone Unavailable Primary Care Provider Unavailabl e Reason for Visit * Reason Comments Outpatient Testing Encounter Details Date Type Department Care Team (Late st Contact Info) Description 08/20/2023 8:20 AM EDT Laboratory Laboratory, [facility] [place] [phone] [facility] 132 [facility] [place] [address] Gigi Hill Other*[id number]; Dyslipidemia Allergies No known active allergiesdocumented as of this encounter (statuses as of 08/20/2023) Medications Medication Sig Dispensed Refills Start Date End Date Status Vitamin D, Cholecalciferol, 1000 UNITS CAPS Take by mouth. 0 Activ e Multiple Vitamins-Minerals (MULTIVITAMIN ADULT) TABS Take by mouth. 0 Active fexofenadine (MINDI) 180 MG TabletIndications:[place] recurrent sinusitis, unspecified location,Non-seasona l allergic rhinitis due to pollen Take 1 Tab by mouth daily as needed for Allergies. 30 Tab 11 09/18/2016 Active fluticasone (FLONASE) 50 MCG/ACT nasal sprayIndications:Acu [place] recurrent sinusitis, unspecified location,Non-seasona l allergic rhinitis due to pollen Administer 2 Sprays into each nostril daily. 1 Inhaler 5 09/18/2016 Active hydrOXYzine HCl 25 MG tabletIndications:Ur ticaria Take 1 Tab by mouth 4 times a day as needed for Itching. 40 Tab 2 09/01/2019 Active Varenicline Tartrate 0.5 MG X 11 & 1 MG X 42 OralIndications:Toba retail account manager use disorder Take as directed on box. 53 Tablet 0 11/26/2021 Active Additional Information Patient not taking.Reported on 12/31/2022 Nicotine 21 MG/24HR Transdermal Patch 24 Hour (Nicoderm CQ)Indications:Tobac co use disorder Place 1 Patch over 24 hours topically on the skin in the morning. On upper body/upper arm, change once a day for 6 weeks.. 42 Patch 0 12/31/2022 Active Additional Information Patient not taking.Reported on 08/20/2023 Diclofenac Sodium 1 % External Gel (Voltaren)Indication s:Primary osteoarthritis of left knee APPLY 4 GRAMS FOUR TIMES DAILY TO KNEE NEEDED FOR PAIN 100 g 2 01/13/2023 Active Azithromycin 250 MG Oral Tablet (Zithromax Z-Jeancarlos)Indications:Ac [place] non-recurrent frontal sinusitis Take two tablets by mouth on first day, then 1 tablet daily until gone 6 Tablet 0 01/24/2023 Active Additional Information Patient not taking.Reported on 08/20/2023 Albuterol Sulfate HFA 108 (90 Base) MCG/ACT Inhalation Aerosol SolutionIndications: COPD, severity to be determined (HCC) Use 2 puffs every 4 hours as needed for wheezing or shortness of breath 18 g 2 03/04/2023 Active Montelukast Sodium 10 MG Oral Tablet (Singulair)Indicatio ns:Seasonal allergic rhinitis due to pollen TAKE 1 TABLET BY MOUTH EVERY DAY 90 Tablet 1 07/19/2023 Active Fluticasone Furoate-Vilanterol 200-25 MCG/ACT Inhalation Aerosol Powder Breath Activated (BREO ellipta)Indications: COPD, severity to be determined (HCC) Inhale 1 Puff by mouth in the morning. 60 Blister Dosing Unit 2 08/20/2023 Active Rosuvastatin Calcium 10 MG Oral Tablet (Crestor)Indications :Dyslipidemia Take 1 Tablet by mouth in the morning. 90 Tablet 3 08/20/2023 Active Varenicline Tartrate 1 MG Oral TabletIndications:To bacco use disorder As directed on box, 0.5 mg once daily on day 1-3, 0.5 mg twice daily on day 4-7, and 1 mg twice daily starting day 8 for 11 weeks. 90 Tablet 0 08/20/2023 Active documented as of this encounter (statuses as of 08/20/2023) Active Problems Problem Noted Date Diagnosed Date [...] as of this encounter (statuses as of 08/20/2023) Resolved Problems Problem Noted Date Diagnosed Date [...] as of this encounter (statuses as of 08/20/2023) Immunizations Name Administration Dates Next Due H1N1 2009 Influenza, IM 06/05/2009 Pneumococcal Conjugate Vacci ne, 20-valent ([id number]) 06/20/2022 Pneumococcal Polysaccharide PPV23 (Pneumovax) 05/28/2021,03/27/2009 Seasonal [...] on file documented as of this encounter Plan of Treatment Upcoming Encounters Date Type Department Care Team (Late st Contact Info) Description 10/27/2023 7:00 AM EDT Imaging Radiology [facility] [address] [place] [address] 02/19/2024 7:20 AM EDT Office Visit Family Practice [address] [place] [address] Char Luque CRNP [address] [place] [address] Pending Results Name Type Priority Associated Diagnoses Date /Time MYCODE INITIAL ADULT Lab Routine [employer] Other*[id number] 08/20/2023 8:10 AM EDT LIPID PANEL WITH DIRECT LDL IF TG IS HIGH Lab Routine Dyslipidemia 08/20/2023 8:10 AM EDT COMPREHENSIVE METABOLIC PANEL Lab Routine Dyslipidemia 08/20/2023 8:10 AM EDT MYCODE INITIAL ADULT-PINK Lab Routine [employer] Other*[id number] 08/20/2023 8:10 AM EDT MYCODE SST1 Lab Routine [employer] Other*[id number] 08/20/2023 8:10 AM EDT MYCODE SST2 Lab Routine [employer] Other*[id number] 08/20/2023 8:10 AM EDT Scheduled Procedures Name Priority Associated Diagnoses Date/Ti me COLONOSCOPY FLEXIBLE PROXIMA L DIAGNOSTIC Recall History of colonic polyps Health Maintenance Due Date Last Done Comments DISCUSS TOBACCO CESSATION (REFER TO SMARTSET #329) 1955 Alpha-1 Antitrypsin 12/15/1973 Depression Screening 12/12/2020 [...] 03/27/2009 LUNG CANCER SCREENING - USE SMARTSET [id number] Completed 10/22/2022, 10/19/2021, 09/22/2020 Influenza Vaccine (FLU [...] as of this encounter Visit Diagnoses Diagnosis [employer]Code [employer] Other*[id number] Dyslipidemia Other and unspecified hyperlipidemia documented in this encounter
--- OUTSIDE RECORDS SUMMARY | 2023-12-24 17:06 | External Medical Summary | Summary of Care ---
Author Name Unknown Organization [facility] Address [address] [facility] [place] [address] Phone [phone] Care Team Providers Care Microchip Specialist Name Role Phone Unavailable Primary Care Provider Unavailabl e Reason for Referral * Medication Prior Authorization - Pending Review Specialty Diagnoses / Procedures Referred By Contac t Referred To Contact Diagnoses COPD, severity to be determined (HCC) Char Luque CRNP [address] [place] [id number] Referral ID Status Reason Start Date Expiration Date V isits Requested Visits Authorized [id number] Pending Review [phone] Reason for Visit * Reason Comments Re-Check Routine check up Encounter Details Date Type Department Care Team (Late st Contact Info) Description 08/20/2023 7:40 AM EDT Office Visit Family Practice [facility] [address] [place] [id number] Char Luque CRNP [address] [place] [address] Dyslipidemia*; COPD, severity to be determined (HCC); Tobacco use disorder; Benign neoplasm of colon, unspecified part of colon Allergies No known active allergiesdocumented as of this encounter (statuses as of 08/20/2023) Medications Medication Sig Dispensed Refills Start Date End Date Status Vitamin D, Cholecalciferol, 1000 UNITS CAPS Take by mouth. 0 Activ e Multiple Vitamins-Minerals (MULTIVITAMIN ADULT) TABS Take by mouth. 0 Active fexofenadine (MINDI) 180 MG TabletIndications: Acute recurrent sinusitis, unspecified location,Non-seaso nal allergic rhinitis due to pollen Take 1 Tab by mouth daily as needed for Allergies. 30 Tab 11 7 Active fluticasone (FLONASE) 50 MCG/ACT nasal sprayIndications:A cute recurrent sinusitis, unspecified location,Non-seaso nal allergic rhinitis due to pollen Administer 2 Sprays into each nostril daily. 1 Inhaler 5 7 Active hydrOXYzine HCl 25 MG tabletIndications: Urticaria Take 1 Tab by mouth 4 times a day as needed for Itching. 40 Tab 2 0 Active Varenicline Tartrate 0.5 MG X 11 & 1 MG X 42 OralIndications:To bacco use disorder Take as directed on box. 53 Tablet 0 2 Active Additional Information Patient not taking.Reported on 12/31/2022 Nicotine 21 MG/24HR Transdermal Patch 24 Hour (Nicoderm CQ)Indications:Tob acco use disorder Place 1 Patch over 24 hours topically on the skin in the morning. On upper body/upper arm, change once a day for 6 weeks.. 42 Patch 0 3 Active Additional Information Patient not taking.Reported on 08/20/2023 Diclofenac Sodium 1 % External Gel (Voltaren)Indicati ons:Primary osteoarthritis of left knee APPLY 4 GRAMS FOUR TIMES DAILY TO KNEE NEEDED FOR PAIN 100 g 2 3 Active Azithromycin 250 MG Oral Tablet (Zithromax Z-Jeancarlos)Indications: Acute non-recurrent frontal sinusitis Take two tablets by mouth on first day, then 1 tablet daily until gone 6 Tablet 0 3 Active Additional Information Patient not taking.Reported on 08/20/2023 Albuterol Sulfate HFA 108 (90 Base) MCG/ACT Inhalation Aerosol SolutionIndication s:COPD, severity to be determined (HCC) Use 2 puffs every 4 hours as needed for wheezing or shortness of breath 18 g 2 3 Active Montelukast Sodium 10 MG Oral Tablet (Singulair)Indicat ions:Seasonal allergic rhinitis due to pollen TAKE 1 TABLET BY MOUTH EVERY DAY 90 Tablet 1 4 Active Fluticasone Furoate-Vilanterol 200-25 MCG/ACT Inhalation Aerosol Powder Breath Activated (BREO ellipta)Indication s:COPD, severity to be determined (HCC) Inhale 1 Puff by mouth in the morning. 60 Blister Dosing Unit 2 4 Active Rosuvastatin Calcium 10 MG Oral Tablet (Crestor)Indicatio ns:Dyslipidemia Take 1 Tablet by mouth in the morning. 90 Tablet 3 4 Active Varenicline Tartrate 1 MG Oral TabletIndications: Tobacco use disorder As directed on box, 0.5 mg once daily on day 1-3, 0.5 mg twice daily on day 4-7, and 1 mg twice daily starting day 8 for 11 weeks. 90 Tablet 0 4 Active Advair Diskus 250-50 MCG/ACT Inhalation Aerosol Powder Breath Activated (Fluticasone-Salme terol)Indications: COPD, severity to be determined (HCC) INHALE 1 PUFF BY MOUTH TWO TIMES DAILY 180 Each 1 3 024 Discontinued Rosuvastatin Calcium 10 MG Oral Tablet (Crestor)Indicatio ns:Dyslipidemia TAKE 1 TABLET BY MOUTH EVERY DAY 30 Tablet 0 4 024 Discontinued(Re fill) documented as of this encounter (statuses as [...] IM 06/05/2009 Pneumococcal Conjugate Vacci ne, 20-valent ([id number]) 06/20/2022 Pneumococcal Polysaccharide PPV23 (Pneumovax) 05/28/2021,03/27/2009 Seasonal [...] Day Cigarettes 0.5 40 Smokeless Tobacco: Never Tobacco Cessation:Ready to Q uit: Yes; Counseling Given: Yes Alcohol Use Standard Drinks/Week Comments No 0 [...] on file documented as of this encounter Last Filed Vital Signs Vital Sign Reading Time Taken Comments Blood Pressure 138/84 08/20/2023 7:31 AM EDT Pulse 80 08/20/2023 7:31 AM EDT Temperature 36.8 C (98.3 F) 08/20/2023 7:31 AM ED T Respiratory Rate 16 08/20/2023 7:31 AM EDT Oxygen Saturation - - Inhaled Oxygen Concentration - - Weight 75.8 kg (167 lb 3.2 oz) 08/20/2023 7:31 A M EDT Height 155.4 cm (5' 1.18") 08/20/2023 7:31 AM ED T Body Mass Index 31.41 08/20/2023 7:31 AM EDT documented in this encounter Progress Notes * Char Luque CRNP - 08/20/2023 7:36 AM EDT Images from the original note were not included. Follow up Family Medicine Visit History of Present Illness Anyi Johnson is a very pleasant 67 year old female with PMH listed below presenting with recheck. Overall, she is doing well. No hospitalization. Not seeing any other specialty. Was not able to have her Advair due to insurance change -- alterative sent today. Smokes 7-10 pk/day. Sometimes she can go without smoking. Interested in quitting smoking. Nicotine patch didn't stick. Social History Socioeconomic History Marital status: Spouse name: Not on file Number of children: 2 Years of education: Not on file Highest education level: Not on file Occupational History Employer: [employer] Comment: [employer] Tobacco Use Smoking status: Every Day Current packs/day: 0.50 Average packs/day: 0.5 packs/day for 40.0 years (20.0 ttl pk-yrs) Types: Cigarettes Smokeless tobacco: Never Vaping Use Vaping Use: Never used Substance and Sexual Activity Alcohol use: No Drug use: No Sexual activity: Not on file Comment: btl Other Topics Concern Service No Blood Transfusions No Caffeine Concern No Occupational Exposure No Hobby Hazards No Sleep Concern No Stress Concern No Weight Concern No Special Diet No Back Care No Exercise Yes Bike Helmet Not Asked Seat Belt Yes Self-Exams Yes Social History Narrative born [place] raised [place] Social Determinants of Health Financial Resource Strain: Not on file Food Insecurity: No Food Insecurity (11/23/2020) Hunger Vital Sign Worried About Running Out of Food in the Last Year: Never true Ran Out of Food in the Last Year: Never true Transportation Needs: Not on file Physical Activity: Not on file Stress: Not on file Social Connections: Not on file Intimate Partner Violence: Not on file Housing Stability: Not on file PMH: Past Medical History: Diagnosis Date Acute tear medial meniscus, left, initial encounter 11/12/2016 Adjustment disorder with depressed mood Benign neoplasm of colon 05/21/2006 repeat 2007, poor prep, hyperplastic polyps Benign neoplasm of colon 09/17/07 adenomatous and hyperplastic; repeat colonoscopy in 3 yrs Menopause 08/19 Moderate episode of recurrent major depressive disorder (HCC) 02/20/2018 Other acute rheumatic heart disease 1966 Rheumatic Fever with Heart Involvement, questionable Tear of medial meniscus of left knee 09/18/2019 complex tear left medial meniscus Tobacco use disorder Urticaria 2004 aggravated by cold and stress Varicella without complication 1960 Varicella in first grade Vitamin D deficiency 06/01/2009 Past Surgical History: Procedure Laterality Date DELIVERY Delivery Only DELIVERY Delivery Only COLONOSCOPY 05/21/2006 poor prep repeat in 2007, hyperplastic polyps removed COLONOSCOPY W/ BIOPSY (RECTUM) 09/17/2007 repeat 3yrs adenomatous and hyperplastic COLONOSCOPY, DIAGNOSTIC (RECTUM) 12/20/2019 biopsies show adenomatous and hyperplastic polyps/recall 5 years/COLONOSCOPY FLEXIBLE PROXIMAL DIAGNOSTIC performed by Ewelina Blum MD at ENDOSCOPY [facility] DEXA SCAN/BONE MINERAL AXIAL 04/03/2007 improved, repeat in 2010 INFORMATION Right 2004 right ankle fracture with repair, [facility] KNEE ARTHROSCOPY/MENISCECTOMY Left 11/12/2016 medical meniscus tear, Dr Ramon LIGATE/CUT OVIDUCT(S) 1981 Tubal Ligation MAMMOGRAM SCREENING-BILATERAL 03/04/2005 benign findings, yearly mammograms appropriate, birad code 2 MAMMOGRAM SCREENING-BILATERAL 05/01/2006 Birad code 2/benign findings MAMMOGRAM SCREENING-BILATERAL 05/01/2006 benign findings, yearly mammogram appropriate, birad code 2 MRI KNEE LEFT W CONTRAST Left 09/22/2019 Menisci: Degenerative horizontal tear of the medial meniscus, involving the body and posterior horn, with a large cluster of adjacent parameniscal cysts. Tricompartmental arthritis REMOVAL OF TONSILS, UNDER AGE 12 Tonsils Removal,<12 Y/O Outpatient Medications Marked as Taking for the 08/20/23 encounter (Office Visit) with Char Luque CRNP Medication Sig Rosuvastatin Calcium 10 MG Oral Tablet (Crestor) TAKE 1 TABLET BY MOUTH EVERY DAY Montelukast Sodium 10 MG Oral Tablet (Singulair) TAKE 1 TABLET BY MOUTH EVERY DAY Albuterol Sulfate HFA 108 (90 Base) MCG/ACT Inhalation Aerosol Solution Use 2 puffs every 4 hours as needed for wheezing or shortness of breath Diclofenac Sodium 1 % External Gel (Voltaren) APPLY 4 GRAMS FOUR TIMES DAILY TO KNEE NEEDED FOR PAIN hydrOXYzine HCl 25 MG tablet Take 1 Tab by mouth 4 times a day as needed for Itching. fexofenadine (MINDI) 180 MG Tablet Take 1 Tab by mouth daily as needed for Allergies. fluticasone (FLONASE) 50 MCG/ACT nasal spray Administer 2 Sprays into each nostril daily. Multiple Vitamins-Minerals (MULTIVITAMIN ADULT) TABS Take by mouth. Vitamin D, Cholecalciferol, 1000 UNITS CAPS Take by mouth. Review of patient's allergies indicates: No Known Allergies Most Recent Immunizations Administered Date(s) Administered H1N1 2009 Influenza, IM 06/05/2009 Pneumococcal Conjugate Vaccine, 20-valent ([id number]) 06/20/2022 Pneumococcal Polysaccharide PPV23 (Pneumovax) 05/28/2021 Seasonal Influenza Virus Vaccine, Unspecified Formulation 04/17/2021 Seasonal Influenza, PF, 6 M & above, IM , (FluLaval or Fluzone) 04/17/2020 Seasonal Influenza, Quadrivalent Hd (Fluzone Hd) 02/14/2023 Seasonal Influenza, Quadrivalent, ID 03/14/2022 Seasonal Influenza, Quadrivalent, No Preserve, IM 04/17/2021 Seasonal Influenza, Split, IIV3, With Preserve, Inj 02/18/2013 TD - Tetanus/Diptheria (ADULT) 10/15/2000 TDAP (age 10 and older)(Boostrix) 11/23/2020 TDAP (age 11 and older)(Adacel) 09/24/2010 Zoster Vaccine Recombinant (Shingrix) 08/02/2019 Review of Systems: Physical Exam BP 138/84 (BP Site: Left Arm, BP Position: Sitting, BP Cuff Size: Regular) | Pulse 80 | Temp 36.8 C (98.3 F) (Tympanic) | Resp 16 | Ht 1.554 m (5' 1.18") | Wt 75.8 kg (167 lb 3.2 oz) | LMP 06/05/2002 | BMI 31.41 kg/m | BSA 1.81 m Physical Exam Constitutional: Appearance: Normal appearance. HENT: Head: Normocephalic. Cardiovascular: Rate and Rhythm: Normal rate and regular rhythm. Pulmonary: Effort: Pulmonary effort is normal. Breath sounds: Normal breath sounds. Abdominal: General: Bowel sounds are normal. Musculoskeletal: General: No swelling. Cervical back: Neck supple. Skin: General: Skin is warm. Neurological: Mental Status: She is alert and oriented to person, place, and time. Psychiatric: Mood and Affect: Mood normal. Assessment and Plan 1. Dyslipidemia Cont crestor - LIPID PANEL WITH DIRECT LDL IF TG IS HIGH; Future - COMPREHENSIVE METABOLIC PANEL; Future - Rosuvastatin Calcium 10 MG Oral Tablet (Crestor); Take 1 Tablet by mouth in the morning. Dispense: 90 Tablet; Refill: 3 2. COPD, severity to be determined (HCC) - Fluticasone Furoate-Vilanterol 200-25 MCG/ACT Inhalation Aerosol Powder Breath Activated (BREO ellipta); Inhale 1 Puff by mouth in the morning. Dispense: 60 Blister Dosing Unit; Refill: 2 3. Tobacco use disorder - Varenicline Tartrate 1 MG Oral Tablet; As directed on box, 0.5 mg once daily on day 1-3, 0.5 mg twice daily on day 4-7, and 1 mg twice daily starting day 8 for 11 weeks. Dispense: 90 Tablet; Refill: 0 4. Benign neoplasm of colon, unspecified part of colon Colonoscpy due 2024 Wrap-Up I have advised the patient to call our office with any worsening or new symptoms. I spent a total of 30-39 minutes (exact time 30 mins) on the date of service in preparation, delivery, and documentation of the care provided to Anyi Johnson excluding any time spent in the performance of separately billed services. Char Luque, MSN, DYNAMIC BALANCER [facility] documented in this encounter Nursing Notes * John Pro RN - 08/20/2023 7:34 AM EDT Chief Complaint Patient presents with Re-Check Routine check up documented in this encounter Miscellaneous Notes * Pt Handout (on AVS) - LAZARO, PATIENT HANDOUT - 08/20/2023 7:34 AM EDT Images from the original note were not included. [id number] Tips for Quitting Smoking (Cardiovascular) Quitting smoking is a gift to yourself. It's one of the best things you can do to keep your heart disease from getting worse. Smoking reduces oxygen flow to your heart. It does this in two ways. It speeds the buildup of plaque along the artery snowden. And it changes the health of your blood vessels.This raises your risk for heart attack, also known as acute myocardial infarction (AMI). Quitting helps reduce smoking's harmful effects. You may have tried to quit before, but don?t give up. Try again. Many smokers try a few times before they succeed. It's never too early to benefit from quitting smoking. This is especially true if you already have ongoing (chronic) conditions, such as high blood pressure and high cholesterol. These put you at higher risk for cardiovascular disease. Quitting smoking is a powerful way to reduce your risk for coronary disease. Line up help Ask for the support of your family and friends. Join a smoking cessation class. Or ask your healthcare provider for a referral to a psychologistwho specializes in helping people quit smoking. Ask your healthcare provider about nicotine replacement products. Also ask about prescription medicines that can help you quit. It may take some time to find a product and schedule that works for you. Set a quit date Choose a date in the next 2 to 4 weeks. After picking a day, davidson it in bold letters on a calendar. Your quit list Ideas to stop smoking include: 1. Start by giving up cigarettes at the times you least need them. 2. Keep some fruit close by at the times you are most likely to reach for a cigarette. For many people, smoking has an oral fixation component. This must be recognized and replaced by a healthy habit. 3. Use a nicotine replacement product instead of a cigarette. Write down a few more ideas: Set limits Limit where you can smoke. Pick a room or a porch. Smoke only in that place. Make smoking outdoors a house rule. Other smokers won?t tempt you as much. Talk with smokers around you about your intent to stop smoking. Then they can show considerationfor you and limit their smoking around you. Hang a list of ?quit benefits? in the spot where you smoke. Put one on the refrigerator and another on your car dashboard. For more information National Cancer [place] Smoking Quitline smokefree.gov/qlbx-wm-gj-expert 606-62Z-CTME (353-969-4796) Last Reviewed Date: 12/17/202119996658-8461 [employer]. All rights reserved. This information is not intended as a substitute for professional medical care. Always follow your healthcare professional's instructions. * Pt Handout (on AVS) - LAZARO, PATIENT HANDOUT - 08/20/2023 7:34 AM EDT Images from the original note were not included. [id number] Kicking the Smoking Habit If you smoke, it doubles your risk of heart disease. Quitting is one of the best changes you can make for your heart and your overall health. Your risk of heart attack goes down within one day of putting out that last cigarette. As you go longer without smoking, your risk drops even more. Quitting isn?t easy. But millions of people have done it. You can, too. It?s never too late to quit. Getting started Boost your chances of success by deciding on your quit plan. Your healthcare provider and cardiac rehab team can help you create this plan. Even if you?ve already quit, it?s easy to slip back into smoking. Your plan can help you prevent and recover from relapse. Start by setting a date to quit within a month. And then do it. [place] to your quit plan Talk with your healthcare provider about prescription medicines and nicotine replacement products that help stop the urge to smoke. Join a support group or quit-smoking program. Talking with others about the challenges of quitting can help you get through them. For more support options, try www.smokefree.gov. Ask other smokers in your home to quit with you. Look for the cues in your life that you connect with smoking. Stay away from them. Track your triggers What gives you that ?M-nreg-q-cigarette? feeling? List all the situations that make you want a cigarette. Then think of other ways to deal with these situations. Here are some examples: Situation How I'll handle it Finishing a meal Get up from the table and take a walk. Having an argument Find a quiet place and breathe deeply. Feeling lonely or bored Call a friend to talk. Tips for quitting successfully List the benefits of quitting, such as reducing heart risks and saving money. Keep this list andreview it whenever you feel like smoking. Get support. Let your friends know you may call them to talk when you have an urge to smoke. If you?ve tried to quit before without success, this time stay away from the triggers that may cause relapse. Make the most of slip-ups. Try to learn from them, and then get back on track. Be accountable to your friends and your quit calendar so that you stay on track. For family and friends Be supportive and patient. Quitting smoking can be hard and stressful. If you smoke, now?s a great time to quit. Even if you don?t quit, never smoke around your loved one. Exposing others to secondhand smoke increases their risk for heart disease, cancer, and stroke. The best goals are reached as a team. Remember that when your loved one says they want to stop smoking. Last Reviewed Date: 11/16/202119992211-7454 [employer]. All rights reserved. This information is not intended as a substitute for professional medical care. Always follow your healthcare professional's instructions. * Pt Handout (on AVS) - LAZARO PATIENT HANDOUT - 08/20/2023 7:33 AM EDT Images from the original note were not included. [id number] How to Quit Smoking Smoking is a hard habit to break. About half of all people who've ever smoked have been able to quit. Most people who still smoke want to quit. Here are some of the best ways to stop smoking. Keep in mind how quitting can help your health The health benefits of quitting start right away. They keep improving the longer you go without smoking. Knowing this can help inspire you to stay on track. These benefits occur at any age. Quitting is a good choice whether you are 17 or 70. Some of the health benefits after your last cigarette include: After 20 minutes: Your blood pressure and pulse return to normal. After 8 hours: Your oxygen levels return to normal. After 2 days: Your ability to smell and taste start to get better as damaged nerves regrow. After 2 to 3 weeks: Your circulation and lung function get better. After 1 to 9 months: You have less coughing, congestion, and shortness of breath. You feel less tired. After 1 year: Your risk of heart attack goes down by 50%. After 5 years: Your risk of lung cancer goes down by 50%. Your risk of stroke becomes the same as a nonsmoker?s. What about going cold turkey? You may have heard about quitting "cold turkey." This means stopping all at once. Going cold turkeyis an option. But it's not the most successful way to quit smoking. Trying to cut back slowly oftendoesn't work as well either. This may be because it continues the habit of smoking. You may also inhale more smoke while smoking fewer cigarettes. This leads to the same amount of nicotine in your body. But quitting cold turkey or cutting back slowly aren't your only choices. Using tobacco cessation medicines with behavioral counseling may be a better choice to help you succeed. Talk with your provider about your choices for support while you quit smoking. Get support Support programs can be a big help, especially for heavy smokers. These groups offer information, ways to change behavior, and peer support. Ask your provider for some resources. Here are some other ways to find support: Smokefree.gov at www.smokefree.gov or 620-CCKM-NXC (698-684-7763) [place] [employer] at www.lung.org/quit-smoking or 471-342-5075 [place] [employer] at www.cancer.org/quitsmoking or 579-093-7594 Support at home is important too. Family and friends can offer praise and reassurance. Ask your friends who smoke to support your decision. Try to stay away from situations that trigger the desire tosmoke. This may include smoking with your morning coffee. Or smoking after a meal. Create new routines to help decrease your cravings. If the smoker in your life finds it hard to quit, encourage them to keep trying. Remind them of allof the benefits to themselves and people they love. Try quvk-pel-uklmczz nicotine replacements Nicotine replacement therapy may make it easier to quit. You can buy some aids without a prescription. These include a nicotine patch, gum, and lozenges. But it's best to use these under the care of your healthcare provider. The skin patch gives a steady supply of nicotine. Nicotine gum and lozenges give short- time doses of low levels of nicotine. Both methods reduce the craving for cigarettes. If you have upset stomach (nausea), vomiting, dizziness, weakness, or a fast heartbeat, stop using these products and see your provider. Ask about prescription medicine After reviewing your smoking patterns and past attempts to quit, your provider may offer a prescription medicine. These include bupropion, varenicline, a nicotine inhaler, or nasal spray. Each has advantages and side effects. Your provider can go over these with you. Keep trying Most smokers try to quit many times before they succeed. It?s important not to give up. Last Reviewed Date: 04/18/202219997847-7463 [employer]. All rights reserved. This information is not intended as a substitute for professional medical care. Always follow your healthcare professional's instructions. * Pt Handout (on AVS) - LAZARO PATIENT HANDOUT - 08/20/2023 7:33 AM EDT Images from the original note were not included. Quitting Smoking (Smoking Cessation) - Video Quitting smoking can be hard and frustrating. But there are many ways to stop, and with trial and error you can find a method that works for you. No matter which method you choose, here are some strategies that can help you along the way. To view the video go to this web address: [email or web address] Or, scan this QR code with your smart phone [employer]. documented in this encounter Plan of Treatment Upcoming Encounters Date Type Department Care Team (Late st Contact Info) Description 10/27/2023 7:00 AM EDT Imaging Radiology [facility] [address] [facility] [place] [id number] 02/19/2024 7:20 AM EDT Office Visit Family Practice [facility] [address] [facility] [place] [id number] Char Luque CRNP [address] [place] [id number] Pending Results Name Type Priority Associated Diagnoses Date /Time LIPID PANEL WITH DIRECT LDL IF TG IS HIGH Lab Routine Dyslipidemia 08/20/2023 8:10 AM EDT COMPREHENSIVE METABOLIC PANEL Lab Routine Dyslipidemia 08/20/2023 8:10 AM EDT Scheduled Orders Name Type Priority Associated Diagnoses Orde r Schedule LIPID PANEL WITH DIRECT LDL IF TG IS HIGH Lab Routine Dyslipidemia Expected: 08/20/2023, Expires: 08/19/2024 COMPREHENSIVE METABOLIC PANEL Lab Routine Dyslipidemia Expected: 08/20/2023 (Approximate), Expires: 08/19/2024 Scheduled Procedures Name Priority Associated Diagnoses Date/Ti me COLONOSCOPY FLEXIBLE PROXIMA L DIAGNOSTIC Recall History of colonic polyps Health Maintenance Due Date Last Done Comments DISCUSS TOBACCO CESSATION (REFER TO SMARTSET #5864) 1955 Alpha-1 Antitrypsin 12/15/1973 Depression Screening 12/12/2020 [...] 03/27/2009 LUNG CANCER SCREENING - USE SMARTSET 06619 Completed 10/22/2022, 10/19/2021, 09/22/2020 Influenza Vaccine (FLU [...] as of this encounter Visit Diagnoses Diagnosis Dyslipidemia- Primary Other and unspecified hyperlipidemia COPD, severity to be determined (HCC) Chronic airway obstruction, not elsewhere classified Tobacco use disorder Benign neoplasm of colon, unspecified part of colon documented in this encounter
--- OUTSIDE RECORDS SUMMARY | 2023-12-24 17:06 | External Medical Summary | Summary of Care ---
Author Name Unknown Organization [facility] Address [address] [place] [address] Phone [phone] Care Team Providers Care Store Clerk Name Role Phone Unavailable Primary Care Provider Unavailabl e Encounter Details Date Type Department Care Team (Late st Contact Info) Description 08/25/2023 Orders Only Outcomes Research Department [address] [place], [place] [id number] Mayte Hearn CHRA [employer] Research Other*[id number] Allergies No known active allergiesdocumented as of this encounter (statuses as of 08/25/2023) Medications Medication Sig Dispensed Refills Start Date End Date Status Vitamin D, Cholecalciferol, 1000 UNITS CAPS Take by mouth. 0 Activ e Multiple Vitamins-Minerals (MULTIVITAMIN ADULT) TABS Take by mouth. 0 Active fexofenadine (MINDI) 180 MG TabletIndications:Ac [place] recurrent sinusitis, unspecified location,Non-seasona l allergic rhinitis [...] 11 & 1 MG X 42 OralIndications:Toba general accounting manager use disorder Take as directed on [...] Azithromycin 250 MG Oral Tablet (Zithromax Z-Jeancarlos)Indications:Ac [place] non-recurrent frontal sinusitis Take two tablets by [...] as of this encounter (statuses as of 08/25/2023) Active Problems Problem Noted Date Diagnosed Date [...] as of this encounter (statuses as of 08/25/2023) Resolved Problems Problem Noted Date Diagnosed Date [...] as of this encounter (statuses as of 08/25/2023) Immunizations Name Administration Dates Next Due H1N1 2009 Influenza, IM 06/05/2009 Pneumococcal Conjugate Vacci ne, 20-valent ([id number]) 06/20/2022 Pneumococcal Polysaccharide PPV23 (Pneumovax) 05/28/2021,03/27/2009 Seasonal [...] Description 10/27/2023 7:00 AM EDT Imaging Radiology [facility] [address] [facility] [place] [id number] 02/19/2024 7:20 AM EDT Office Visit Family Practice [facility] [address] [place] [address] Char Luque CRNP [address] [facility] [place] [id number] Scheduled Orders Name Type Priority Associated Diagnoses Orde r Schedule MYCODE SUBSEQUENT ADULT Lab Routine [employer] Other*[id number] Every 6 Months for 2 Occurrences starting 08/25/2023 until 09/13/2024 Scheduled Procedures Name Priority Associated Diagnoses Date/Ti me COLONOSCOPY FLEXIBLE PROXIMA L DIAGNOSTIC Recall History of colonic polyps Health Maintenance Due Date Last Done Comments DISCUSS TOBACCO CESSATION (REFER TO SMARTSET #5850) 1955 Alpha-1 Antitrypsin 12/15/1973 Depression Screening 12/12/2020 [...] Additional history exists Lipid Panel 08/19/2028 08/20/2023, 0610/2022, 05/28/2021, Additional history exists DTaP,Tdap,and Td Vaccines (3 - Td or Tdap) 11/23/2030 11/23/2020, 09/24/2010, 10/15/2000 Zoster Vaccines Completed 08/02/2019, 05/24/2019 COLONOSCOPY-EVERY 3 YRS AGES 18-100 Discontinued 12/20/2019, 12/20/2019, 09/17/2007, Additional history exists Pap Smear Discontinued 12/24/2019, 11/2019, 04/08/2016, Additional history exists Pneumococcal Vaccine: 65+ Years Completed 06/20/2022, 05/28/2021, 03/27/2009 LUNG CANCER SCREENING - USE SMARTSET 69952 Completed 10/22/2022, 10/19/2021, 09/22/2020 Influenza Vaccine (FLU [...] this encounter Visit Diagnoses Diagnosis [employer] Other*[id number] documented in this encounter
[2023-12-24] MEDS ORDERED: fentaNYL citrate PF 100 MCG/2 ML VIAL ONE ×2 (17:11→18:23)
[2023-12-24] MEDS ORDERED: MIDAZOLAM HCL 1 MG/ML 2ML VIAL ONE (17:11)
[2023-12-24] MEDS ORDERED: DEXAMETHASONE SOD INJ 4 MG/ML VIAL ONE ×2 (17:14→18:03)
[2023-12-24] MEDS ORDERED: GLYCOPYRROLATE 0.2 MG/ML VIAL ONE (17:14)
[2023-12-24] MEDS ORDERED: ONDANSETRON INJ 2 MG/ML 2 ML VIAL ONE (17:14)
[2023-12-24] MEDS ORDERED: LIDOCAINE 2% 20 MG/ML 5 ML SYR IV ONE (17:14)
[2023-12-24] MEDS ORDERED: ROCURONIUM BROMIDE 10 MG/ML 5 ML VIAL IV ONE ×2 (17:14→19:04)
[2023-12-24] MEDS ORDERED: PROPOFOL IV EMULSION 10 MG/ML 20 ML VIAL IV ONE (17:14)
[2023-12-24] MEDS ORDERED: SUGAMMADEX SODIUM 200 MG/2 ML VIAL IV ONE (17:15)
[2023-12-24] MEDS ORDERED: PHENYLEPHRINE 100MCG/ML 10ML SYR IV ONE (18:04)
[2023-12-24] MEDS ORDERED: ePHEDrine sulfate 50 MG/5 ML SYR ONE (18:04)
[2023-12-24] MEDS ORDERED: KETOROLAC 30 MG/ML VIAL ONE (18:39)
[2023-12-24] MEDS: BUPIVACAINE 0.5 % 5 MG/1 ML MPF 30ML VIAL ONE (19:49)
--- NOTE | 2023-12-24 20:30 | Anesthesiology Progress Note ---
Date of Service December 24, 2023 Anesthesia Post Procedure Vital Signs Vital Signs: Temp Pulse Pulse Resp BP BP Pulse Ox 12/24/23 17:37 36.6 C 66 18 131/59 L 96 12/24/23 16:59 64 18 166/69 H 98 12/24/23 14:53 68 18 132/79 98 12/24/23 11:13 36.1 C L 97 H 18 151/101 H 95 O2 Del Method 12/24/23 17:37 Room Air 12/24/23 16:59 Room Air 12/24/23 14:53 Room Air 12/24/23 11:13 Room Air Transfer of Care Handoff Completed per policy Notes Mental Status: alert / awake / arousable and participated in evaluation Patient Amnestic to Procedure: Yes Nausea / Vomiting: adequately controlled Pain: adequately controlled Airway Patency, RR, SpO2: stable & adequate BP & HR: stable & adequate Hydration State: stable & adequate Anesthetic Complications: no major complications apparent and Pt Satisfied with anesthetic care
[2023-12-24] MEDS ORDERED: KETOROLAC 30 MG/ML VIAL IV PRN (20:40)
[2023-12-24] MEDS ORDERED: oxyCODONE HCL IR 5 MG TAB (IMMEDIATE RELEASE) PO PRN (20:40)
[2023-12-24] MEDS ORDERED: LACTATED RINGER'S 1,000 ML IV SCH (20:40)
[2023-12-24] MEDS ORDERED: ALBUTEROL HFA 8 GM INHALER INH PRN (20:40)
--- NOTE | 2023-12-24 20:40 | Post Operative Brief Note ---
Immediate Post Op Note Date of Surgery December 24, 2023 Pre & Post Diagnosis Operation Date: 12/24/23 07:00 Pre-Op Diagnosis: Left Ovarian Mass; Left Ovarian Torsion Post-Op Diagnosis: Left Ovarian Mass; Left Ovarian Torsion I identified the patient and participated in the time-out.: Yes Procedure Operation Date: 12/24/23 07:00 Actual Procedures p Operative Laparoscopy, Left Oophorectomy and Partial Left Salpingectomy(Left) - Tomas Morrell MD Surgeon Tomas Morrell MD Yarding And Folding Machine Operator Dr. Martinez, Ericka Fuentes RN Estimated Blood Loss 10 Findings Consistent with Post-Op Diagnosis necrotic left ovarian mass with torsion Fluids LR 1100 ml. Specimens left ovary portion of left fallopian tube Anesthesia Type General Complications none Disposition Accompanied Patient To Recovery: Yes Overlapping Procedure I was present for: the critical portions of procedure. I was immediately available: during the entire case. Back up surgeon: used during listed procedure.
--- NOTE | 2023-12-24 21:38 | Operative Report ---
Post Operative Report Pre & Post Diagnosis Operation Date: 12/24/23 07:00 Pre-Op Diagnosis: Left Ovarian Mass; Left Ovarian Torsion Post-Op Diagnosis: Left Ovarian Mass; Left Ovarian Torsion I identified the patient and participated in the time-out.: Yes Procedure Operation Date: 12/24/23 07:00 Actual Procedures p Operative Laparoscopy, Left Oophorectomy and Partial Left Salpingectomy(Left) - Tomas Morrell MD Surgeon Tomas Morrell MD Package Collector Dr. Martinez, Ericka Fuentes RN Quantitative Blood Loss (QBL) 10 Findings Consistent with Post-Op Diagnosis left ovarian mass with torsion Fluids LR 1100 ml. Specimens leftovarian mass portion of left fallopian tube Drains none Anesthesia Type General Complications none Disposition Accompanied Patient To Recovery: Yes Disposition: Surgical ICU Indications left ovarian mass with torsion Description of Procedure Under satisfactory general anesthesia the patient was prepped draped in usual sterile fashion. A timeout was called and she was identified prior to the start of the procedure. Dickerson catheter was inserted followed by a Valenzuela retractor in the posterior vault of the vagina. A long Allis clamp was then used to grasp the anterior lip of the cervix. Severa attempts were made to put in a HUMI uterine manipulator but the cervix was very stenotic after attempts at trying to dilate the cervix were unsuccessful therefore I just used a sponge stick in the vagina which was used for uterine manipulation. I then turned my attention to the abdomen. Half percent Marcaine was then placed infra-umbilically with approximately 10 mL. Stab wound was made with a #11 knife blade. Veress needle was then inserted and using hanging drop method sterile water used to confirm proper placement into abdomen and 3 L of carbon oxide gas was then placed creating an artificial pneumoperitoneum. The needle was withdrawn the incision was widened to approximately 1 cm and a #11 trocar was then inserted. The patient was then placed in Trendelenburg position the scope was then inserted through the trocar and the contents of the pelvic and abdominal cavity were then visualized. Procedure was documented with still video photography. It was noted that the uterus was deep in the pelvis with an apparent prior tubal ligation noted attempts at viewing the ovary were unsuccessful second puncture using a 5 mm trocar with the same use in the midline the probe was inserted under direct visualization the bowel was then moved out of the way. It was noted that the right ovary was very small and appeared normal the left ovary was deep in the cul-de-sac it was not able to be removed at this point. A third trocar was then inserted on the left-hand side 5 mm which was placed in the mid abdomen. The ovary was then graft and it was attempted to remove this which was unsuccessful. The upper abdomen had numerous adhesions presumably from prior C- sections. At this point I called Dr. Martinez for additional assistance with the case. He came down to the OR and scrubbed in. Another trocar was inserted on the right side. He will dictate the portion of the case for his portion. He used a harmonic scalpel scalpel after the ovary was grabbed and this was removed from the pedicle which was torsed and necrotic. There is a small portion of the tube that was also necrotic and this was also removed. #10 bag was then inserted and several attempts were made to try to remove the mass but the bag was too small and was removed and a #15 bag was then used. #11 port was then switched out with a #12 port and the contents of the ovary after being placed in the bag were were too big to be removed the incision in the midline was widened the contents of the bag were then morcellated and then several pieces were removed before the entire bag was able to be removed. Everything was removed completely intact without the bag breaking no spillage into the abdominal cavity and then the bag and the pieces were then submitted to pathology as 1 specimen. Visualization of the pelvis and abdomen were accomplished after this with no bleeding noted. All the remaining trocars were then removed. The midline incision was then closed using Vicryl suture in a continuous fashion followed by a second 3-0 Vicryl suture to imbricate the fat layer and 4 Monocryl for the skin. The three 5 mm ports were then closed with 4-0 Monocryl suture and the remainder of the ports were then cleaned and then Dermabond was then applied. The remaining instruments were then removed from the vagina along with the Dickerson catheter. The final sponge needle instrument count were found to be correct the total EBL was 10 mL total urine output was 150 mL and the total fluid was 1100 mL. The patient was then placed supine on a stretcher and she was moved to the [facility] recovery room in stable condition I attest to the content of the Intraoperative Record and any orders documented therein. Any exceptions are noted below.
[2023-12-25] MEDS: IBUPROFEN 600 MG TAB PO PRN (07:56)
[2023-12-25] MEDS: MONTELUKAST SODIUM 10 MG TABLET PO SCH (07:57)
[2023-12-25] MEDS: MULTIVITAMIN TAB PO SCH (07:57)
[2023-12-25] MEDS: FEXOFENADINE HCL 180 MG TAB PO SCH (07:57)
[2023-12-25] MEDS: ROSUVASTATIN CALCIUM 10 MG TAB PO SCH (07:58)
[2023-12-25] MEDS: CHOLECALCIFEROL 25 MCG (1000 UNITS) TAB PO SCH (07:58)
[2023-12-25] MEDS: FLUTICASONE FUROATE 100MCG 14 PUFFS/INHALER INH SCH (07:59)
[2023-12-25] MEDS: LACTATED RINGER'S 1,000 ML IV SCH (07:59)
[2023-12-25 08:34] VITALS: BP 106/61; PULSE 73; RESP 16; TEMP 97.9; O2SAT 95
--- NOTE | 2023-12-25 09:24 | Obstetrical Progress Note ---
Date of Service December 25, 2023 Assessment & Plan Admission and Anticipated Discharge Date Admission Date: December 24, 2023 OB Progress Note abdomen soft and non tender bowel sounds present passing gas no calf tenderness ambulating well small amount of vaginal bleeding patient requests discharge Results & Data Vital Signs (Past 12 Hours) Vital Signs Temp Pulse Pulse Resp BP Pulse Ox O2 Del Method 12/25/23 07:50 36.6 C 73 16 106/61 95 Room Air 12/25/23 05:30 36.7 C 77 18 105/59 L 93 Room Air 12/25/23 01:00 36.7 C 72 16 96/52 L 94 Room Air 12/24/23 23:54 80 93 Room Air 12/24/23 22:25 Room Air 12/24/23 22:15 Room Air 12/24/23 22:15 70 16 114/69 93 Room Air
--- NOTE | 2023-12-25 09:29 | Discharge Summary ---
Date of Service December 25, 2023 Admission HPI Per Admitting Provider 68 F [id number] post-menopausal with onset of left LLQ pain starting last PM and lasting to admission to ER this AM. She vomited four times last night and was unable to keep anything down with pain that was not relieved so she came to the ER. 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 Discharge Data Procedures Performed Operation Date: 12/24/23 07:00 Actual Procedures p Operative Laparoscopy, Left Oophorectomy and Partial Left Salpingectomy(Left) - Tomas Morrell MD Hospital Course (1) Ovarian torsion: Patient was admitted through the ER with acute left quadrant pain associated with nausea and vomiting. CAT scan revealed portion of the left ovary. The patient underwent left sided removal of tube and ovary. Her symptoms promptly resolved. At the time of discharge patient was requesting to leave the hospital. Patient was ambulating well. Eating well. Abdomen was soft and nontender. Incisions were clean and dry. Patient pain was well-controlled with nonnarcotic pain medications. Patient was given the usual postoperative instructions.
[2023-12-25 09:50] LABS: Basophils # (auto) 0.01 K/uL (0.00-0.20); Basophils % (auto) 0.1 %; Hematocrit (blood only) 35.3 % (37.0-47.0); Hemoglobin 11.8 g/dl (12.0-16.0); Immature Granulocytes # (auto) 0.03 K/uL (0.01-0.20); Immature Granulocytes % (auto) 0.3 %; Lymphocytes % (auto) 8.4 %; Mean Corpuscular Hemoglobin 32.5 pg (25.0-34.0); Mean Corpuscular Hgb Conc 33.4 g/dL (32.0-36.0); Mean Corpuscular Volume 97.2 fL (80.0-100.0); Mean Platelet Volume 10.9 fL (9.4-12.4); Monocytes # (auto) 0.53 K/uL (0.11-0.59); Monocytes % (auto) 5.6 %; Neutrophils # (auto) 8.16 K/uL (1.40-6.50); Neutrophils % (auto) 85.6 %; Platelet Count 175 K/uL (130-400); RDW Coefficient of Variation 13.2 % (11.5-14.5); RDW Standard Deviation 47.2 fL (36.4-46.3); Red Blood Count 3.63 M/uL (4.20-5.40); White Blood Count 9.53 K/ul (4.8-10.8)
--- NOTE | 2023-12-31 07:20 | Coding Query ---
PATHOLOGY To promote full compliance with coding requirements relating to patient care, physician participation is requested in all cases of seismograph operator helper uncertainty. 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
== END 2023-12-25 10:41 | disposition home or self-care (01) | DRG 743 ==
LOC: ED 11:06 → 4E1 17:11 → OR 17:11 → 4E1 17:12